=== PATIENT | female | born 1940 | race Caucasian/White ===

== ENCOUNTER 2017-10-29 16:39 | Emergency (ER) | payer OTHER, BC ==
[~2017-10-29] VITALS: Ht 162.6 cm; Wt 41.7 kg
[2017-10-29 16:39] VITALS: BP_SYST 202
[2017-10-29] MEDS ORDERED: IBUPROFEN 400 MG TABLET PO ONE (17:00)
[2017-10-29 18:18] VITALS: BP_SYST 143
== END 2017-10-29 18:18 | disposition home or self-care (01) ==
LOC: SED 16:39
DX: S20.212A Contusion of left front wall of thorax, initial encounter (principal); R03.0 Elevated blood-pressure reading, without diagnosis of hypertension; J44.9 Chronic obstructive pulmonary disease, unspecified; W17.89XA Other fall from one level to another, initial encounter; Y93.89 Activity, other specified; Y92.89 Other specified places as the place of occurrence of the external cause; Y99.8 Other external cause status
CPT/HCPCS: 71045; 71100; 99284

== ENCOUNTER 2018-02-06 09:37 | Outpatient (CLI) | payer OTHER, BC | END 2018-02-06 20:04 | disposition home or self-care (01) | LOC: SCA 09:37 | DX: I07.1 Rheumatic tricuspid insufficiency (principal); E78.5 Hyperlipidemia, unspecified; J44.9 Chronic obstructive pulmonary disease, unspecified | CPT/HCPCS: 93306 ==

== ENCOUNTER 2018-08-08 12:03 | Inpatient (IN) | payer OTHER, BC ==
[~2018-08-08] VITALS: Ht 162.6 cm; Wt 44.0 kg
[2018-08-08 12:09] VITALS: BP_SYST 200
[2018-08-08] MEDS ORDERED: NACL 0.9% 1,000 ML IV ONE (12:11)
[2018-08-08] MEDS ORDERED: MORPHINE 4 MG/ML INJ. SYRINGE IVP ONE (12:15)
[2018-08-08] MEDS ORDERED: ONDANSETRON HCL 4 MG/2 ML VIAL IVP ONE (12:15)
[2018-08-08 12:43] LABS: ANION GAP 9 (5-15); CALCIUM 9.7 mg/dL (8.4-11.0); CHLORIDE 104 mmol/L (98-107); CREATININE 0.45 mg/dL (0.55-1.30); GLUCOSE 126 mg/dL (70-99); POTASSIUM 3.8 mmol/L (3.5-5.1); SODIUM SERUM 139 mmol/L (136-145); UREA NITROGEN, BLOOD 20 mg/dL (8-21)
[2018-08-08 12:49] LABS: ALANINE AMINOTRANSFERASE 47 U/L (12-78); ALBUMIN 3.7 g/dL (3.4-4.8); ASPARTATE AMINOTRANSFERASE 32 U/L (10-37); LIPASE 112 U/L (73-393); TOTAL BILIRUBIN 0.5 mg/dL (0.0-1.0)
[2018-08-08 12:54] LABS: EOSINOPHILS % (AUTO) 0.6 % (0.0-4.0); HEMATOCRIT 42.9 % (36-48); HEMOGLOBIN 14.6 g/dL (12.0-16.0); LYMPHOCYTES % (AUTO) 15.7 % (20.5-51.5); MEAN CORPUSCULAR HEMOGLOBIN 30 pg (27-31); MEAN CORPUSCULAR HGB CONC 34 % (32-36); MEAN CORPUSCULAR VOLUME 89 fL (79.0-98.0); MONOCYTES % (AUTO) 6.7 % (1.7-9.3); NEUTROPHILS % (AUTO) 76.7 % (40.0-70.0); PLATELET COUNT (AUTO) 253 K/uL (130-430); RED BLOOD CELL COUNT(AUTO) 4.83 MIL/uL (4.2-6.2); RED CELL DISTRIBUTION WIDTH 13.8 % (9.0-15.0); WHITE BLOOD COUNT (AUTO) 7.9 K/uL (4.8-10.8)
[2018-08-08 12:55] LABS: BASOPHILS % (AUTO) 0.3 % (0.0-2.0); EOSINOPHILS # (AUTO) 0.1 K/uL (0.0-0.4); LYMPHOCYTES # (AUTO) 1.2 K/uL (1.0-5.5); MONOCYTES # (AUTO) 0.5 K/uL (0.0-1.0)
[2018-08-08] MEDS ORDERED: D5NS 1,000 ML IV SCH (13:45)
[2018-08-08 14:27] LABS: BILIRUBIN,URINE NEGATIVE (NEGATIVE); BLOOD, URINE NEGATIVE (NEGATIVE); CLARITY/URINE CLEAR (CLEAR); COLOR,URINE YELLOW (YELLOW); GLUCOSE,URINE NEGATIVE (NEGATIVE); KETONES,URINE NEGATIVE (NEGATIVE); LEUKOCYTE ESTERASE ,URINE 1+ (NEGATIVE); NITRITE, URINE NEGATIVE (NEGATIVE); PH,URINE 7.5 (5.0-8.0); PROTEIN URINE NEGATIVE (NEGATIVE); UROBILINOGEN,URINE 0.2 (0.2-1.0)
[2018-08-08 14:53] LABS: BACTERIA,URINE FEW /HPF (None Seen); MUCUS,URINE 1+ /LPF (None Seen); RBC,URINE 0-3 /HPF (0-3)
[2018-08-08 15:00] VITALS: BP_SYST 159
[2018-08-08 15:24] VITALS: BP_SYST 159
[2018-08-08 15:30] VITALS: BP_SYST 159
[2018-08-08] MEDS ORDERED: hydrALAZINE HCL 20 MG/ML VIAL IVP PRN (15:30)
[2018-08-08] MEDS ORDERED: HYDROcodone/ACETAMIN 5-325 MG TAB (NORCO/ VICODIN) PO PRN ×2 (16:15→17:15)
[2018-08-08] MEDS ORDERED: KETOROLAC TROMETHAMINE 30 MG VIAL IVP PRN (16:15)
[2018-08-08] MEDS ORDERED: ACETAMINOPHEN 325 MG TABLET PO PRN (17:15)
[2018-08-08] MEDS ORDERED: HYDROmorphone 2 MG/ML VIAL IVP PRN (17:15)
[2018-08-08] MEDS ORDERED: LORazepam 2 MG/ML VIAL IVP PRN (17:15)
[2018-08-08] MEDS ORDERED: ONDANSETRON HCL 4 MG/2 ML VIAL IVP PRN (17:15)
[2018-08-08] MEDS ORDERED: hydrALAZINE HCL 25 MG TABLET PO SCH (18:00)
[2018-08-08] MEDS: D5/0.45 NS 1,000 ML IV SCH (18:01)
[2018-08-08] MEDS ORDERED: GUAI100S14 PO (18:24)
[2018-08-08] MEDS ORDERED: THYR60TA PO (18:24)
[2018-08-08] MEDS ORDERED: PROG100C15 PO (18:24)
[2018-08-08 18:47] VITALS: BP_SYST 179
[2018-08-08 20:00] VITALS: BP_SYST 162
[2018-08-08] MEDS: hydrALAZINE HCL 25 MG TABLET PO SCH (20:38)
[2018-08-09 02:51] VITALS: BP_SYST 148
[2018-08-09] MEDS: D5/0.45 NS 1,000 ML IV SCH ×2 (04:33→17:13)
[2018-08-09 06:55] LABS: ANION GAP 8 (5-15); CALCIUM 8.2 mg/dL (8.4-11.0); CHLORIDE 107 mmol/L (98-107); GLUCOSE 127 mg/dL (70-99); POTASSIUM 3.2 mmol/L (3.5-5.1); SODIUM SERUM 139 mmol/L (136-145); UREA NITROGEN, BLOOD 6 mg/dL (8-21)
[2018-08-09 07:24] LABS: HEMOGLOBIN 12.3 g/dL (12.0-16.0); MEAN CORPUSCULAR HEMOGLOBIN 30 pg (27-31); MEAN CORPUSCULAR HGB CONC 33 % (32-36); MEAN CORPUSCULAR VOLUME 89 fL (79.0-98.0); RED BLOOD CELL COUNT(AUTO) 4.17 MIL/uL (4.2-6.2); WHITE BLOOD COUNT (AUTO) 6.6 K/uL (4.8-10.8)
[2018-08-09 07:25] LABS: BASOPHILS % (AUTO) 0.6 % (0.0-2.0); EOSINOPHILS % (AUTO) 0.9 % (0.0-4.0); LYMPHOCYTES # (AUTO) 1.1 K/uL (1.0-5.5); LYMPHOCYTES % (AUTO) 16.6 % (20.5-51.5); MONOCYTES % (AUTO) 10.4 % (1.7-9.3); NEUTROPHILS # (AUTO) 4.7 K/uL (1.8-7.7); NEUTROPHILS % (AUTO) 71.5 % (40.0-70.0); PLATELET COUNT (AUTO) 194 K/uL (130-430); RED CELL DISTRIBUTION WIDTH 13.5 % (9.0-15.0)
[2018-08-09 07:26] LABS: EOSINOPHILS # (AUTO) 0.1 K/uL (0.0-0.4); MONOCYTES # (AUTO) 0.7 K/uL (0.0-1.0)
[2018-08-09 08:35] VITALS: BP_SYST 148
[2018-08-09] MEDS: hydrALAZINE HCL 25 MG TABLET PO SCH ×2 (08:40→20:15)
[2018-08-09] MEDS ORDERED: POTASSIUM CHLORIDE 20 MEQ TAB.PRT.SR PO ONE (12:00)
[2018-08-09 12:02] VITALS: BP_SYST 137
[2018-08-09 16:22] VITALS: BP_SYST 154
[2018-08-09 20:00] VITALS: BP_SYST 156
[2018-08-10 03:16] VITALS: BP_SYST 158
[2018-08-10] MEDS: D5/0.45 NS 1,000 ML IV SCH ×2 (06:51→22:01)
[2018-08-10 07:43] LABS: ALANINE AMINOTRANSFERASE 41 U/L (12-78); ALBUMIN 2.6 g/dL (3.4-4.8); ANION GAP 4 (5-15); ASPARTATE AMINOTRANSFERASE 34 U/L (10-37); CALCIUM 8.1 mg/dL (8.4-11.0); CHLORIDE 106 mmol/L (98-107); CREATININE 0.25 mg/dL (0.55-1.30); GLUCOSE 117 mg/dL (70-99); POTASSIUM 3.5 mmol/L (3.5-5.1); SODIUM SERUM 136 mmol/L (136-145); UREA NITROGEN, BLOOD 5 mg/dL (8-21)
[2018-08-10 08:40] LABS: HEMOGLOBIN 12.8 g/dL (12.0-16.0); MEAN CORPUSCULAR HEMOGLOBIN 31 pg (27-31); MEAN CORPUSCULAR HGB CONC 35 % (32-36); MEAN CORPUSCULAR VOLUME 89 fL (79.0-98.0); PLATELET COUNT (AUTO) 184 K/uL (130-430); RED BLOOD CELL COUNT(AUTO) 4.17 MIL/uL (4.2-6.2); RED CELL DISTRIBUTION WIDTH 13.8 % (9.0-15.0); WHITE BLOOD COUNT (AUTO) 6.3 K/uL (4.8-10.8)
[2018-08-10 08:41] LABS: BASOPHILS % (AUTO) 0.5 % (0.0-2.0); EOSINOPHILS # (AUTO) 0.1 K/uL (0.0-0.4); EOSINOPHILS % (AUTO) 1.7 % (0.0-4.0); LYMPHOCYTES # (AUTO) 1.2 K/uL (1.0-5.5); LYMPHOCYTES % (AUTO) 19.7 % (20.5-51.5); MONOCYTES # (AUTO) 0.7 K/uL (0.0-1.0); MONOCYTES % (AUTO) 11.9 % (1.7-9.3); NEUTROPHILS # (AUTO) 4.2 K/uL (1.8-7.7); NEUTROPHILS % (AUTO) 66.2 % (40.0-70.0)
[2018-08-10 08:45] VITALS: BP_SYST 147
[2018-08-10] MEDS: hydrALAZINE HCL 25 MG TABLET PO SCH ×2 (08:48→21:00)
[2018-08-10 12:12] VITALS: BP_SYST 149
[2018-08-10 13:32] LABS: INR 0.9 (0.8-1.2); PROTHROMBIN TIME 9.7 SECS (9.5-12.5)
[2018-08-10 17:30] VITALS: BP_SYST 159
[2018-08-10] MEDS ORDERED: POLYMYXIN 500,000/BACIT.10,000 UNITS in NS IRR 1 L IR ONE (18:17)
[2018-08-10 20:08] VITALS: BP_SYST 159
[2018-08-10] MEDS ORDERED: ONDANSETRON HCL 4 MG/2 ML VIAL IVP PRN (20:30)
[2018-08-10] MEDS ORDERED: MORPHINE SULFATE 10MG/10ML PF AMP SP SCH (20:30)
[2018-08-10] MEDS ORDERED: DIPHENHYDRAMINE INJ 50 MG/ML VIAL IVP PRN (20:30)
[2018-08-10] MEDS ORDERED: KETOROLAC TROMETHAMINE 60 MG/2 ML VIAL IM PRN (20:30)
[2018-08-10] MEDS ORDERED: fentaNYL CITRATE/PF 100 MCG/2 ML AMP IVP PRN ×2 (20:30)
[2018-08-10] MEDS ORDERED: NALOXONE HCL 0.4 MG/ML AMP (NARCAN) IVP PRN ×2 (20:30)
[2018-08-10] MEDS ORDERED: NALBUPHINE HCL 10 MG/ML AMP IVP PRN (20:30)
[2018-08-10 21:33] VITALS: BP_SYST 148
[2018-08-10] MEDS ORDERED: CEFAZOLIN 1 GM IVPB PREMIX 100 ML IV ONE (22:15)
[2018-08-10] MEDS: CEFAZOLIN 1 GM IVPB PREMIX 50 ML IV SCH (23:01)
[2018-08-11 00:30] VITALS: BP_SYST 144
[2018-08-11] MEDS: CEFAZOLIN 1 GM IVPB PREMIX 50 ML IV SCH (06:12)
[2018-08-11 06:22] LABS: ANION GAP 6 (5-15); CHLORIDE 107 mmol/L (98-107); POTASSIUM 3.4 mmol/L (3.5-5.1); SODIUM SERUM 139 mmol/L (136-145)
[2018-08-11 06:23] LABS: CALCIUM 8.1 mg/dL (8.4-11.0); CREATININE 0.33 mg/dL (0.55-1.30); GLUCOSE 135 mg/dL (70-99); UREA NITROGEN, BLOOD 9 mg/dL (8-21)
[2018-08-11 07:16] LABS: HEMATOCRIT 32.2 % (36-48); HEMOGLOBIN 11.1 g/dL (12.0-16.0); MEAN CORPUSCULAR HEMOGLOBIN 31 pg (27-31); MEAN CORPUSCULAR HGB CONC 34 % (32-36); MEAN CORPUSCULAR VOLUME 89 fL (79.0-98.0); RED BLOOD CELL COUNT(AUTO) 3.63 MIL/uL (4.2-6.2); WHITE BLOOD COUNT (AUTO) 7.9 K/uL (4.8-10.8)
[2018-08-11 07:17] LABS: BASOPHILS % (AUTO) 0.1 % (0.0-2.0); EOSINOPHILS % (AUTO) 0.6 % (0.0-4.0); LYMPHOCYTES # (AUTO) 0.7 K/uL (1.0-5.5); LYMPHOCYTES % (AUTO) 9.3 % (20.5-51.5); MONOCYTES # (AUTO) 0.8 K/uL (0.0-1.0); MONOCYTES % (AUTO) 10.2 % (1.7-9.3); NEUTROPHILS # (AUTO) 6.3 K/uL (1.8-7.7); NEUTROPHILS % (AUTO) 79.8 % (40.0-70.0); PLATELET COUNT (AUTO) 171 K/uL (130-430); RED CELL DISTRIBUTION WIDTH 13.4 % (9.0-15.0)
[2018-08-11] MEDS ORDERED: POTASSIUM CHLORIDE 20 MEQ TAB.PRT.SR PO ONE ×2 (08:30→13:15)
[2018-08-11] MEDS: hydrALAZINE HCL 25 MG TABLET PO SCH ×2 (09:00→21:00)
[2018-08-11 09:24] VITALS: BP_SYST 121
[2018-08-11 11:16] VITALS: BP_SYST 119
[2018-08-11] MEDS: D5/0.45 NS 1,000 ML IV SCH (13:03)
[2018-08-11] MEDS ORDERED: IOHEXOL 350 mgI/mL, 150 ML INFUS..BTL IV ONE (14:08)
[2018-08-11 16:17] VITALS: BP_SYST 107
[2018-08-11] MEDS ORDERED: ENOXAPARIN SODIUM 40 MG/0.4 ML SYRINGE SUBCUT SCH (19:00)
[2018-08-11 20:00] VITALS: BP_SYST 126
[2018-08-11] MEDS: HYDROcodone/ACETAMIN 10-325 MG TAB PO PRN (21:46)
[2018-08-12 00:20] VITALS: BP_SYST 142
[2018-08-12] MEDS: D5/0.45 NS 1,000 ML IV SCH ×2 (03:40→15:05)
[2018-08-12 06:57] LABS: ANION GAP 6 (5-15); CALCIUM 8.3 mg/dL (8.4-11.0); CHLORIDE 102 mmol/L (98-107); CREATININE 0.28 mg/dL (0.55-1.30); GLUCOSE 135 mg/dL (70-99); POTASSIUM 3.8 mmol/L (3.5-5.1); SODIUM SERUM 134 mmol/L (136-145); UREA NITROGEN, BLOOD 14 mg/dL (8-21)
[2018-08-12 07:50] LABS: BASOPHILS % (AUTO) 0.4 % (0.0-2.0); EOSINOPHILS # (AUTO) 0.1 K/uL (0.0-0.4); EOSINOPHILS % (AUTO) 1.5 % (0.0-4.0); HEMATOCRIT 28.5 % (36-48); HEMOGLOBIN 9.8 g/dL (12.0-16.0); LYMPHOCYTES # (AUTO) 0.8 K/uL (1.0-5.5); LYMPHOCYTES % (AUTO) 9.7 % (20.5-51.5); MEAN CORPUSCULAR HEMOGLOBIN 30 pg (27-31); MEAN CORPUSCULAR HGB CONC 34 % (32-36); MEAN CORPUSCULAR VOLUME 89 fL (79.0-98.0); MONOCYTES % (AUTO) 13.3 % (1.7-9.3); NEUTROPHILS # (AUTO) 5.9 K/uL (1.8-7.7); NEUTROPHILS % (AUTO) 75.1 % (40.0-70.0); PLATELET COUNT (AUTO) 170 K/uL (130-430); RED BLOOD CELL COUNT(AUTO) 3.22 MIL/uL (4.2-6.2); RED CELL DISTRIBUTION WIDTH 13.8 % (9.0-15.0); WHITE BLOOD COUNT (AUTO) 7.9 K/uL (4.8-10.8)
[2018-08-12] MEDS: HYDROcodone/ACETAMIN 10-325 MG TAB PO PRN ×2 (08:17→16:07)
[2018-08-12 08:26] VITALS: BP_SYST 127
[2018-08-12] MEDS: hydrALAZINE HCL 25 MG TABLET PO SCH (08:26)
[2018-08-12] MEDS ORDERED: HYDR-4038 PO (12:31)
[2018-08-12 12:33] VITALS: BP_SYST 126
[2018-08-12 15:42] VITALS: BP_SYST 126
[2018-08-12 16:55] VITALS: BP_SYST 135
[2018-08-12] MEDS ORDERED: PROPOFOL 200MG/ 20ML VIAL (DIPRIVAN) IV ONE (18:05)
[2018-08-12] MEDS ORDERED: EPINEPHrine 1 MG/ML AMP IM ONE (18:05)
[2018-08-12] MEDS ORDERED: MORPHINE SULFATE 10MG/10ML PF AMP EP ONE (18:05)
[2018-08-12] MEDS ORDERED: MIDAZOLAM HCL 5 MG/5 ML VIAL IVP ONE (18:05)
[2018-08-12] MEDS ORDERED: LR 500 ML IV.SOLN IV ONE (18:05)
== END 2018-08-12 16:45 | DRG 470 ==
LOC: SED 12:03 → SMU 13:45
PROVIDERS: ADMIT Preventive Medicine Preventive Medicine/Occupational Environmental Medicine; ATTEND Preventive Medicine Preventive Medicine/Occupational Environmental Medicine
PROC: 0SRR01A Replacement of Right Hip Joint, Femoral Surface with Metal Synthetic Substitute, Uncemented, Open Approach (ICD-10-PCS; principal; 2018-08-10 18:00)
DX: S72.141A Displaced intertrochanteric fracture of right femur, initial encounter for closed fracture (principal); E03.9 Hypothyroidism, unspecified; I28.9 Disease of pulmonary vessels, unspecified; I11.9 Hypertensive heart disease without heart failure; I25.10 Atherosclerotic heart disease of native coronary artery without angina pectoris; I65.23 Occlusion and stenosis of bilateral carotid arteries; I73.9 Peripheral vascular disease, unspecified; J44.9 Chronic obstructive pulmonary disease, unspecified; W01.0XXA Fall on same level from slipping, tripping and stumbling without subsequent striking against object, initial encounter; Y92.009 Unspecified place in unspecified non-institutional (private) residence as the place of occurrence of the external cause; E87.6 Hypokalemia
CPT/HCPCS: 36415; 70498; 71045; 72170-TC; 73502; 80048; 80053; 81000-TC; 82962; 83690-TC; 83735-TC; 85025; 85610-TC; 87081; 87086; 88305; 88311; 93005; 93306; 93880; 94010; 94760; 96360; 97110-GP; 97116-GP; 97530-GP; 99285; C1776; J0171; J0690; J1885; J2250; J2274; J2704; J7042; J7120; Q9967

== ENCOUNTER 2018-08-14 08:04 | Inpatient (IN) | payer OTHER, BC ==
[~2018-08-14] VITALS: Ht 162.6 cm; Wt 45.8 kg
[~2018-08-14 08:04] MED LIST: HYDR-4038 PO; PROG100C15 PO; THYR60TA PO
[2018-08-14] MEDS ORDERED: MIDAZOLAM HCL 5 MG/5 ML VIAL IVP ONE (12:30)
[2018-08-14] MEDS ORDERED: PROPOFOL 200MG/ 20ML VIAL (DIPRIVAN) IV ONE ×2 (12:30→22:00)
[2018-08-14] MEDS ORDERED: BUPIVACAINE LIPOSOME/PF 266 MG/20 ML VIAL INFIL ONE (12:30)
[2018-08-14] MEDS ORDERED: LR 1,000 ML IV.SOLN IV ONE ×2 (12:30→22:00)
[2018-08-14] MEDS ORDERED: SEVOFLURANE 15 MIN GAS INH ONE ×2 (12:30→22:00)
[2018-08-14] MEDS ORDERED: LORazepam 2 MG/ML VIAL IVP PRN (13:00)
[2018-08-14] MEDS ORDERED: ACETAMINOPHEN 325 MG TABLET PO PRN (13:00)
[2018-08-14] MEDS ORDERED: ONDANSETRON HCL 4 MG/2 ML VIAL IVP PRN (13:00)
[2018-08-14 13:04] VITALS: BP_SYST 197
--- NOTE | 2018-08-14 13:22 | NUR ---
ADMISSION NOTE Patient is a direct admit. Patient is awake, alert, oriented X [3]. Patient oriented to hospital room, call light, toileting, pain management and safety-teach back done. Patient informed that will be Ze nurse and that their room number is . Personal belongings checked and Belongings List documented. Call light within reach.
[2018-08-14] MEDS: NORMAL SALINE 5 ML DISP.SYRIN IVF SCH ×2 (14:00→21:35)
[2018-08-14] MEDS: HYDROcodone/ACETAMIN 10-325 MG TAB PO PRN ×2 (14:16→21:35)
--- NOTE | 2018-08-14 14:38 | NUR ---
DR. HATCH IS CALLED FOR THE CONSULT. MESSAGE IS RELAYED PER DIRECTOR EMBALMER
[2018-08-14] MEDS: HYDROcodone/ACETAMIN 5-325 MG TAB (NORCO/ VICODIN) PO PRN (16:05)
[2018-08-14 16:50] VITALS: BP_SYST 158
--- NOTE | 2018-08-14 17:07 | NUR ---
DR. HATCH IS CONSULTED FOR THE SURGERY, BUT HE IS CURRENTLY ON SUSPENSION; DR. HATCH IS INFORMED ABOUT HIS SUSPENSION, AND HE STATES HE WILL SEE THE PATIENT AND PLANNING TO DO SURGERY TOMORROW AFTER HE CLEARS HIS SUSPENSION. DR. MEJIA IS ALSO INFORMED ABOUT THE CURRENT SITUATION, AND ORDERS FOR PRE OP SURGICAL PREPARATIONS ARE GIVEN BY DR. MEJIA.
[2018-08-14] MEDS ORDERED: PROGESTERONE MICRONIZED 100 MG PO SCH (18:00)
[2018-08-14 18:18] LABS: BASOPHILS % (AUTO) 0.4 % (0.0-2.0); EOSINOPHILS % (AUTO) 0.2 % (0.0-4.0); HEMATOCRIT 33.7 % (36-48); HEMOGLOBIN 11.4 g/dL (12.0-16.0); LYMPHOCYTES % (AUTO) 11.8 % (20.5-51.5); MEAN CORPUSCULAR HEMOGLOBIN 30 pg (27-31); MEAN CORPUSCULAR HGB CONC 34 % (32-36); MEAN CORPUSCULAR VOLUME 89 fL (79.0-98.0); MONOCYTES # (AUTO) 0.9 K/uL (0.0-1.0); MONOCYTES % (AUTO) 9.6 % (1.7-9.3); PLATELET COUNT (AUTO) 324 K/uL (130-430); RED BLOOD CELL COUNT(AUTO) 3.78 MIL/uL (4.2-6.2); RED CELL DISTRIBUTION WIDTH 13.4 % (9.0-15.0); WHITE BLOOD COUNT (AUTO) 8.9 K/uL (4.8-10.8)
[2018-08-14 18:22] LABS: INR 0.9 (0.8-1.2); PROTHROMBIN TIME 9.3 SECS (9.5-12.5)
[2018-08-14 18:25] LABS: ANION GAP 7 (5-15); CALCIUM 8.9 mg/dL (8.4-11.0); CHLORIDE 100 mmol/L (98-107); CREATININE 0.36 mg/dL (0.55-1.30); GLUCOSE 94 mg/dL (70-99); POTASSIUM 3.3 mmol/L (3.5-5.1); SODIUM SERUM 135 mmol/L (136-145); UREA NITROGEN, BLOOD 12 mg/dL (8-21)
--- NOTE | 2018-08-14 18:50 | NUR ---
WINTER CATH: # 16 FR Winter catheter with cc bulb inserted with use of sterile technique. Bulb inflated with cc sterile water. Immediate return of urine noted. Bedside drainage bag placed below level of bladder. Urine sample collected and sent to lab . Pt tolerated procedure WITHOUT DISTRESS
--- NOTE | 2018-08-14 19:15 | NUR ---
OPENING NOTES Bedside report received from dayshift nurse. Patient received lying in bed, AOx4, no s/s of acute distress noted. Breathing is even and unlabored. Family members present at bedside. Trapeze present. Landrum attached, secured, and draining by gravity. Call light with patient, instructed to call for any assistance, patient verbalized understanding. Bed alarm is on. Bed is locked and at lowest position. Will continue to monitor.
[2018-08-14 19:16] LABS: BILIRUBIN,URINE NEGATIVE (NEGATIVE); BLOOD, URINE 2+ (NEGATIVE); CLARITY/URINE HAZY (CLEAR); COLOR,URINE YELLOW (YELLOW); GLUCOSE,URINE NEGATIVE (NEGATIVE); KETONES,URINE 2+ (NEGATIVE); NITRITE, URINE POSITIVE (NEGATIVE); PH,URINE 5.5 (5.0-8.0); PROTEIN URINE 2+ (NEGATIVE)
[2018-08-14 19:26] LABS: LEUKOCYTE ESTERASE ,URINE 3+ (NEGATIVE)
[2018-08-14 19:27] LABS: BACTERIA,URINE MANY /HPF (None Seen); RBC,URINE 0-3 /HPF (0-3); WBC,URINE 80-100 /HPF (0-3)
[2018-08-14 19:28] LABS: MUCUS,URINE None Seen /LPF (None Seen)
[2018-08-14 20:00] VITALS: BP_SYST 168
[2018-08-14] MEDS: MORPHINE 4 MG/ML INJ. SYRINGE IVP PRN (20:35)
[2018-08-14] MEDS: hydrALAZINE HCL 25 MG TABLET PO SCH (21:00)
--- NOTE | 2018-08-14 21:00 | NUR ---
REFUSED APRESOLINE Patient refused to take medication stating that she does not need it. Patient informed that her BP was 168/78. Patient stated that it is high because she is in pain. All needs met at this time. Call light with patient. Bed alarm on. Will continue to monitor.
--- NOTE | 2018-08-14 23:00 | NUR ---
ROUNDS Patient in bed sleeping at this time. No signs of discomfort noted. Chest rise and fall even bilaterally. No active bleeding noted. Call light with patient. All needs met at this time. Bed alarm on. Will continue to monitor.
--- NOTE | 2018-08-15 01:00 | NUR ---
ROUNDS Patient in bed sleeping at this time. No signs of discomfort noted. Chest rise and fall even bilaterally. Landrum draining by gravity. Call light with patient. Bed alarm on. Will continue to monitor.
--- NOTE | 2018-08-15 03:00 | NUR ---
ROUNDS Patient sleeping. No s/s of acute distress noted. Breathing even and unlabored. Call light with patient. Bed alarm on. Patient's daughter present at bedside, sleeping. Will continue to monitor.
[2018-08-15 04:14] VITALS: BP_SYST 148
--- NOTE | 2018-08-15 04:51 | NUR ---
CONSULT CONSULT CALLED FOR DR. HOLDEN BELLAMY I SPOKE WITH EMIR LÓPEZ REASON FOR CONSULT: HIP DISLOCATION REQUESTING CONSULT: DR. JACKIE SOU[employer] GENERAL LITHOGRAPHIC WORKER PHONE NUMBER: [phone]
--- NOTE | 2018-08-15 05:00 | NUR ---
ROUNDS Patient sleeping at this time. No signs of discomfort noted. Chest rise and fall even bilaterally. Call light with patient. Bed alarm on. Will continue to monitor.
[2018-08-15] MEDS: MORPHINE 4 MG/ML INJ. SYRINGE IVP PRN ×2 (05:40→09:44)
[2018-08-15] MEDS: NORMAL SALINE 5 ML DISP.SYRIN IVF SCH ×3 (05:40→21:29)
--- NOTE | 2018-08-15 06:20 | NUR ---
CLOSING NOTES Patient in bed, eyes closed, appears to be asleep. No s/s of acute distress noted. Breathing even and unlabored. IV site patent, no signs of infiltration or infection noted. Trapeze present at bedside. Landrum attached, secured, and draining by gravity. All needs met throughout shift. Fall and safety precautions maintained throughout shift. Will continue to monitor until patient care is endorsed to oncoming dayshift nurse.
[2018-08-15 06:48] LABS: ANION GAP 4 (5-15); CALCIUM 8.4 mg/dL (8.4-11.0); CHLORIDE 102 mmol/L (98-107); CREATININE 0.25 mg/dL (0.55-1.30); GLUCOSE 88 mg/dL (70-99); POTASSIUM 3.1 mmol/L (3.5-5.1); SODIUM SERUM 134 mmol/L (136-145); UREA NITROGEN, BLOOD 11 mg/dL (8-21)
--- NOTE | 2018-08-15 06:58 | NUR ---
Nutrition Update Rhett Scale 16 noted. Pt admitted for Superior Dislocation of R Prosthesis Diet: NPO BMI: 17.4 kg/m2 RD to follow per nutrition care standards.
[2018-08-15 07:18] LABS: HEMOGLOBIN 9.7 g/dL (12.0-16.0); RED BLOOD CELL COUNT(AUTO) 3.19 MIL/uL (4.2-6.2); WHITE BLOOD COUNT (AUTO) 7.2 K/uL (4.8-10.8)
[2018-08-15 07:22] LABS: BASOPHILS % (AUTO) 0.5 % (0.0-2.0); EOSINOPHILS % (AUTO) 1.7 % (0.0-4.0); HEMATOCRIT 28.2 % (36-48); LYMPHOCYTES % (AUTO) 16.7 % (20.5-51.5); MEAN CORPUSCULAR HEMOGLOBIN 30 pg (27-31); MEAN CORPUSCULAR HGB CONC 34 % (32-36); MEAN CORPUSCULAR VOLUME 88 fL (79.0-98.0); MONOCYTES % (AUTO) 11.8 % (1.7-9.3); NEUTROPHILS % (AUTO) 69.3 % (40.0-70.0); PLATELET COUNT (AUTO) 285 K/uL (130-430); RED CELL DISTRIBUTION WIDTH 13.1 % (9.0-15.0)
[2018-08-15 07:23] LABS: EOSINOPHILS # (AUTO) 0.1 K/uL (0.0-0.4); LYMPHOCYTES # (AUTO) 1.2 K/uL (1.0-5.5); MONOCYTES # (AUTO) 0.8 K/uL (0.0-1.0)
[2018-08-15 08:00] VITALS: BP_SYST 154
--- NOTE | 2018-08-15 08:00 | NUR ---
Note Pt resting in bed - NPO for possible surgery this morning. No SOB/resp distress or severe right hip pain noted at this time. IV in left forearm intact and patent at this time. Landrum catheter intact and draining well. Abductor pillow between legs. No needs noted at this time. Call light within reach.
[2018-08-15] MEDS ORDERED: POTASSIUM CHLORIDE 40 MEQ, LIDOCAINE JECT 2% PF 100 MG 50 MG in NS 250 ML IV ONE (08:15)
--- NOTE | 2018-08-15 08:56 | NUR ---
CONSULT CARDIOLOGY HYPERTENSION DR Willi MEJIA [phone] S/W FELIBERTO EXCHANGE
[2018-08-15] MEDS: hydrALAZINE HCL 25 MG TABLET PO SCH ×2 (09:05→21:00)
[2018-08-15] MEDS: THYROID 30 MG TABLET PO SCH (09:08)
--- NOTE | 2018-08-15 10:00 | NUR ---
Note Pt was given Morphine 2mg IVP at 0945am. IV started leaking, IV was dc'd and new IV inserted by Betsy montgomery RN. Pt's daughter at bedside all shift. Vp [employer] Marge notified RN that pt will have surgery by Dr Dela Cruz between 11am and noon. Pt and her daughter were notified. PROPERTY LOSS INSURANCE CLAIM ADJUSTER to give pt CHG bath. Chart made ready for surgery. Call light within reach.
[2018-08-15 11:38] VITALS: BP_SYST 149
--- NOTE | 2018-08-15 12:00 | NUR ---
Note Dr Roberto called and update on pt's status given. HUMAN RESOURCE ADVISER's in room speaking to pt and her daughter. Questions/concerns were answered at this time. Pt resting in bed. Call light within reach. Pt's 40meq K-rider running through left upper arm IV site since 1036am. No needs noted. Call light within reach.
--- NOTE | 2018-08-15 12:32 | NUR ---
Note Pt off the floor via bed to OR. Dr Roberto with pt and 2 [employer]'s as well. Pt's daughter accompanied pt off the room to OR as well to speak to Dr Dela Cruz.
[2018-08-15] MEDS ORDERED: fentaNYL CITRATE/PF 100 MCG/2 ML AMP IVP PRN ×2 (13:15)
[2018-08-15] MEDS ORDERED: MIDAZOLAM HCL 2 MG/2 ML VIAL (VERSED) IVP PRN (13:15)
[2018-08-15] MEDS ORDERED: fentaNYL CITRATE/PF 100 MCG/2 ML AMP ONE (13:54)
--- NOTE | 2018-08-15 15:05 | NUR ---
Note Pt returned to floor vai bed from PACU at 1410. Pt drowsy and sleepy, answers questions appropriately. Right hip dressing CDI at this time. Neuro checks on right leg WNL at this time, IVF's infusing well through left upper arm IV site. Landrum catheter intact and draining well. No needs noted at this time. Call light within reach. Pt's daughter has left bedside and has gone home at 1430. Pt resting well, no needs noted at this time.
--- NOTE | 2018-08-15 16:35 | NUR ---
Case mgt: Rec'd orders for HH, PT, hospital bed,FWW, BSC--per nurse Karen, family is discussing dc plan and dtr prefers pt to return to [facility] but they are discussing it. Pt lives alone--will f/u for dc planning-- director Lucy made aware of late dc plan orders and aware f/u will be Friday, August 17. KT CHOE
[2018-08-15 17:00] VITALS: BP_SYST 167
--- NOTE | 2018-08-15 17:05 | NUR ---
Note Spoke to pt's son Omid about pt's discharge from the hospital. Omid stated pt and her son and daughter (all 3) will have a discussion today or tomorrow and let CM know their decision on friday08/17/18. CM Desire notified of this decision. Pr awake and interacting with her son at this time. No needs noted. Call light within reach.
--- NOTE | 2018-08-15 18:30 | NUR ---
Note Pt sitting up in bed eating her regular diet of toast and soup. Pt's daughter and son in law at bedside. Pt denies any pain/discomfort at this time. Neuro checks in right leg WNL at this time. Pt was checked on q1' and PRN all shift for needs and care. IV in left upper arm intact and patent infusing IVF's well. Right hip dressing CDI at this time. Abductor pillow between legs all shift. No needs noted. No SOB/resp distress noted. Call light within reach.
--- NOTE | 2018-08-15 19:05 | NUR ---
OPENING NOTE Bedside report received from dayshift nurse. Patient received lying in bed, AOX4, no s/s of acute distress, patient denies any pain at this time. HOB raised, breathing even and unlabored. IVF infusing well, IV site patent, no signs of infiltration or infection noted. Abductor pillow placed in between patient's legs. Heels elevated. Neurovascular check within normal limits. Trapeze present at bedside. Landrum attached, secured, and draining by gravity. Call light with patient. Bed alarm on. Bed locked and at lowest position. Will continue to monitor.
[2018-08-15 20:00] VITALS: BP_SYST 123
--- NOTE | 2018-08-15 21:00 | NUR ---
EDUCATION: IS Patient educated on proper use of IS, 10 repetitions per hour when awake. Patient was able to demonstrate proper use, reaching 1500 at this time. Patient verbalized understanding. All needs met at this time. Call light with patient. Bed alarm on. Will continue to monitor.
--- NOTE | 2018-08-15 23:00 | NUR ---
SCDs ATTACHED SCDs attached this time. Patient shows no signs of discomfort, denies pain. Chest rise and fall even bilaterally. Call light with patient. Bed alarm on. Landrum attached, secured, and draining by gravity. All needs met. Will continue to monitor.
[2018-08-15 23:44] VITALS: BP_SYST 145
--- NOTE | 2018-08-16 01:00 | NUR ---
ROUNDS Patient sleeping at this time. No s/s of acute distress. Chest rise and fall even bilaterally. Call light with patient. Bed alarm on. Will continue to monitor.
--- NOTE | 2018-08-16 03:00 | NUR ---
ROUNDS Patient in bed sleeping at this time. No s/s of acute distress noted. Breathing even and unlabored. Call light with patient. Bed alarm on. Will continue to monitor.
[2018-08-16] MEDS: MORPHINE 4 MG/ML INJ. SYRINGE IVP PRN (03:50)
--- NOTE | 2018-08-16 05:00 | NUR ---
ROUNDS Patient in bed sleeping at this time. No signs of discomfort noted. Chest rise and fall even bilaterally. Call light with patient. Bed alarm on. Will continue to monitor.
[2018-08-16] MEDS: NORMAL SALINE 5 ML DISP.SYRIN IVF SCH ×3 (06:07→21:21)
[2018-08-16] MEDS: THYROID 30 MG TABLET PO SCH (06:07)
--- NOTE | 2018-08-16 06:27 | NUR ---
CLOSING NOTE Patient in bed resting, eyes closed, appears to be asleep. No s/s of acute distress noted. Breathing even and unlabored. HOB raised. IV site patent, no signs of infiltration or infection noted. Abductor device placed between legs, trapeze present at bedside. Landrum attached, secured, and draining by gravity. SCDs attached and operating. All needs met throughout shift. Fall and safety precautions maintained throughout shift. Will continue to monitor until patient care is endorsed to oncoming dayshift nurse.
[2018-08-16 07:22] LABS: ANION GAP 3 (5-15); CALCIUM 8.1 mg/dL (8.4-11.0); CHLORIDE 103 mmol/L (98-107); GLUCOSE 98 mg/dL (70-99); POTASSIUM 3.8 mmol/L (3.5-5.1); SODIUM SERUM 135 mmol/L (136-145); UREA NITROGEN, BLOOD 9 mg/dL (8-21)
[2018-08-16 07:24] LABS: BASOPHILS % (AUTO) 0.5 % (0.0-2.0); EOSINOPHILS # (AUTO) 0.2 K/uL (0.0-0.4); EOSINOPHILS % (AUTO) 2.7 % (0.0-4.0); HEMATOCRIT 26.9 % (36-48); HEMOGLOBIN 9.3 g/dL (12.0-16.0); LYMPHOCYTES # (AUTO) 1.4 K/uL (1.0-5.5); LYMPHOCYTES % (AUTO) 19.4 % (20.5-51.5); MEAN CORPUSCULAR HEMOGLOBIN 30 pg (27-31); MEAN CORPUSCULAR HGB CONC 35 % (32-36); MEAN CORPUSCULAR VOLUME 88 fL (79.0-98.0); MONOCYTES # (AUTO) 0.9 K/uL (0.0-1.0); MONOCYTES % (AUTO) 12.9 % (1.7-9.3); NEUTROPHILS # (AUTO) 4.5 K/uL (1.8-7.7); NEUTROPHILS % (AUTO) 64.5 % (40.0-70.0); PLATELET COUNT (AUTO) 303 K/uL (130-430); RED BLOOD CELL COUNT(AUTO) 3.08 MIL/uL (4.2-6.2)
[2018-08-16 07:26] LABS: CREATININE < 0.20 mg/dL (0.55-1.30)
--- NOTE | 2018-08-16 07:50 | NUR ---
INITIAL NOTE RECEIVED PT IN BED, NO S/S OF DISTRESS OR SOB NOTED, PT HAS NO C/O PAIN AT THIS TIME, PT IN STABLE CONDITION. PT AAOX4, VERBAL. IV CATHETER PATENT, NO SIGNS OF INFECTION OR INFILTRATION NOTED, SALINE LOCK. BED AT LOWEST POSITION, CALL LIGHT WITHIN REACH, WILL CONTINUE TO MONITOR PT FOR ANY CHANGES, FALL AND SAFETY PRECAUTIONS IN PLACE. RIGHT HIP INCISION CLEAN AND DRY WITH JERMAINE, NOTED A DRESSING ON END OF INCISION CLEAN AND DRY. F/C DRAINING VIA GRAVITY, EDUCATED PT ON INCENTIVE SPIROMETER, PT TO PERFORM EXERCISE AT LEAST TIMES 10 AN HOURS, PT VERBALIZED UNDERSTANDING, PT AT 1500ML. PT HAS AN ABDUCTOR PILLOW IN PLACE. PT ABLE TO MOVE TOES ON RIGHT FOOT, SENSATION PRESENT, CAPILLARY REFILL LESS THAN 3 SECONDS, PULSE PALPABLE.
[2018-08-16 08:10] VITALS: BP_SYST 144
[2018-08-16] MEDS: hydrALAZINE HCL 25 MG TABLET PO SCH ×2 (09:00→21:00)
--- NOTE | 2018-08-16 10:16 | NUR ---
ROUNDS PT IN BED, NO S/S OF DISTRESS OR SOB NOTED, PT HAS NO C/O PAIN AT THIS TIME, PT IN STABLE CONDITION. PT WATCHING TV, WILL CONTINUE TO MONITOR PT FOR ANY CHANGES.
[2018-08-16] MEDS: HYDROcodone/ACETAMIN 10-325 MG TAB PO PRN ×2 (10:52→22:02)
[2018-08-16 11:26] VITALS: BP_SYST 154
--- NOTE | 2018-08-16 12:50 | NUR ---
ROUNDS PT IN BED, NO S/S OF DISTRESS OR SOB NOTED, PT HAS NO C/O PAIN AT THIS TIME, PT IN STABLE CONDITION, PT WATCHING TV, WILL CONTINUE TO MONITOR PT FOR ANY CHANGES.
--- NOTE | 2018-08-16 12:56 | NUR ---
MD ROUNDS DR JACKIE SOSA, AWARE OF PATIENT'S CONDITION, NEW ORDERS GIVEN, PER MD TO START LOVENOX 40 MG SUBCUTANEOUS DAILY FOR DVT PROPHYLAXIS.
[2018-08-16 15:13] VITALS: BP_SYST 143
--- NOTE | 2018-08-16 18:30 | NUR ---
CLOSING NOTE PT IN BED, NO S/S OF DISTRESS OR SOB NOTED, PT HAS NO C/O PAIN AT THIS TIME, PT IN STABLE CONDITION. PT AAOX4, VERBAL. IV CATHETER PATENT, NO SIGNS OF INFECTION OR INFILTRATION NOTED, SALINE LOCK. BED AT LOWEST POSITION, CALL LIGHT WITHIN REACH, WILL ENDORSE CARE OF PT TO INCOMING NURSE, FALL AND SAFETY PRECAUTIONS IN PLACE. RIGHT HIP INCISION CLEAN AND DRY, F/C DRAINING VIA GRAVITY, EDUCATED PT ON INCENTIVE SPIROMETER, PT AT 1500ML. PT HAS AN ABDUCTOR PILLOW IN PLACE. PT ABLE TO MOVE TOES ON RIGHT FOOT, SENSATION PRESENT, CAPILLARY REFILL LESS THAN 3 SECONDS, PULSE PALPABLE.
--- NOTE | 2018-08-16 19:10 | NUR ---
OPENING NOTES Late entry due to patient care. Bedside report received from dayshift nurse. Patient received lying in bed, watching TV, no s/s of acute distress noted. Breathing even and unlabored. HOB raised. Abductor pillow placed. Heels elevated. SCDs attached and operating. IV site patent, no signs of infiltration or infection noted. Landrum attached, secured, and draining by gravity. Call light with patient. Bed alarm on. Will continue to monitor.
[2018-08-16 20:00] VITALS: BP_SYST 127
--- NOTE | 2018-08-16 21:00 | NUR ---
ROUNDS Patient in bed watching TV. No signs of discomfort noted. Patient denies any pain. Chest rise and fall even bilaterally. Call light with patient. Bed alarm on. Will continue to monitor.
[2018-08-16] MEDS: ENOXAPARIN SODIUM 40 MG/0.4 ML SYRINGE SUBCUT SCH (21:20)
--- NOTE | 2018-08-16 23:00 | NUR ---
ROUNDS Patient asleep at this time. No s/s of acute distress. Breathing even and unlabored. Call light with patient. Bed alarm on. Will continue to monitor.
--- NOTE | 2018-08-17 01:00 | NUR ---
ROUNDS Patient in bed sleeping at this time. No signs of discomfort noted. Chest rise and fall even bilaterally. SCDs attached and operating. Call light with patient. Bed alarm on. Will continue to monitor.
--- NOTE | 2018-08-17 03:00 | NUR ---
ROUNDS Patient sleeping at this time. No s/s of acute distress noted. Breathing even and unlabored. Call light with patient. Bed alarm on. Will continue to monitor.
--- NOTE | 2018-08-17 05:32 | NUR ---
TRANSFER OF CARE Report given to DAIJA Solitario for transfer of care. Patient in bed sleeping at this time. No s/s of acute distress noted. Breathing even and unlabored. Landrum attached, secured and draining by gravity. Trapeze at bedside. Abductor pillow and SCDs applied. All needs met. Call light with patient. Bed alarm on.
--- NOTE | 2018-08-17 06:00 | NUR ---
Educate patient about IS Patient was educated with the use of Incentive Spirometry. Patient verbalized understanding but refused to perform it. Explained risk and benefits.
[2018-08-17 06:34] LABS: ANION GAP 5 (5-15); CALCIUM 7.9 mg/dL (8.4-11.0); CHLORIDE 104 mmol/L (98-107); CREATININE 0.35 mg/dL (0.55-1.30); GLUCOSE 94 mg/dL (70-99); SODIUM SERUM 139 mmol/L (136-145); UREA NITROGEN, BLOOD 11 mg/dL (8-21)
[2018-08-17] MEDS: NORMAL SALINE 5 ML DISP.SYRIN IVF SCH ×3 (06:37→21:14)
[2018-08-17] MEDS: THYROID 30 MG TABLET PO SCH (06:37)
[2018-08-17 06:42] LABS: ALANINE AMINOTRANSFERASE 33 U/L (12-78); ALBUMIN 1.7 g/dL (3.4-4.8); ASPARTATE AMINOTRANSFERASE 24 U/L (10-37); TOTAL BILIRUBIN 0.4 mg/dL (0.0-1.0)
--- NOTE | 2018-08-17 06:50 | NUR ---
Final notes Patient is resting comfortably at this time with family at bedside. No s/s of any distress noted. All v/s are wnl. All needs met and anticipated by noc nurses. Call light in reach, bed alarm on and side rails up x3 for safety. Endorse care to incoming nurse.
[2018-08-17 07:19] LABS: BASOPHILS % (AUTO) 0.7 % (0.0-2.0); EOSINOPHILS % (AUTO) 3.3 % (0.0-4.0); HEMATOCRIT 28.6 % (36-48); HEMOGLOBIN 9.9 g/dL (12.0-16.0); LYMPHOCYTES % (AUTO) 26.8 % (20.5-51.5); MEAN CORPUSCULAR HEMOGLOBIN 30 pg (27-31); MEAN CORPUSCULAR HGB CONC 34 % (32-36); MEAN CORPUSCULAR VOLUME 88 fL (79.0-98.0); NEUTROPHILS % (AUTO) 57.2 % (40.0-70.0); PLATELET COUNT (AUTO) 348 K/uL (130-430); RED BLOOD CELL COUNT(AUTO) 3.27 MIL/uL (4.2-6.2); RED CELL DISTRIBUTION WIDTH 13.4 % (9.0-15.0); WHITE BLOOD COUNT (AUTO) 7.2 K/uL (4.8-10.8)
[2018-08-17 07:20] LABS: EOSINOPHILS # (AUTO) 0.2 K/uL (0.0-0.4); LYMPHOCYTES # (AUTO) 1.9 K/uL (1.0-5.5); MONOCYTES # (AUTO) 0.9 K/uL (0.0-1.0); NEUTROPHILS # (AUTO) 4.1 K/uL (1.8-7.7)
--- NOTE | 2018-08-17 08:00 | NUR ---
Opening Note Report received from [facility] shift nurse. Patient is awake and resting in bed. Abductor pillow is in place. Right hip surgical incision, is dry and intact. Right pedal pulse is palpable. Cap refill is < 3 sec. Patient is able to move all the toes on the affected extremity. IV is on the LFA 22g, saline locked. Landrum cath is in place. Will continue to monitor.
[2018-08-17 08:03] VITALS: BP_SYST 146
[2018-08-17] MEDS: hydrALAZINE HCL 25 MG TABLET PO SCH ×2 (08:34→21:00)
[2018-08-17] MEDS: HYDROcodone/ACETAMIN 5-325 MG TAB (NORCO/ VICODIN) PO PRN (08:39)
[2018-08-17] MEDS ORDERED: ENOXAPARIN SODIUM 40 MG/0.4 ML SYRINGE SUBCUT SCH (09:00)
--- NOTE | 2018-08-17 09:46 | NUR ---
Discharge Planning: DCP received order for hospital bed, DCP called [facility] (f [phone] p [phone]) to get a quote if insurance if criteria was not sufficient. Semi electric bed $115.00 per month, $95.00 for delivery and Full electric bed $150.00 per month, $95.00 for delivery. DCP informed CM
--- NOTE | 2018-08-17 10:05 | NUR ---
Rounds Deep suction done. Addendum: 08/17/18 at 1042 by Wendi Del Rio RN not intended for this patient
--- NOTE | 2018-08-17 10:05 | NUR ---
Rounds Patient got OOB with PT to the commode. Spoke with Dr. Craft who stated to keep the cabrera cath in until the patient is more mobile.
--- NOTE | 2018-08-17 10:41 | NUR ---
Endorsed care to Patricia CHOE.
--- NOTE | 2018-08-17 10:42 | NUR ---
RESUME CARE Received report from Wendi. Patient resting in the bed. No acute distress. Denied of pain at this time. Skin warm and dry to touch. SL intact to LFA, no redness, no swelling, patent. F/C intact, drain gravity with yellow urine. Abductor pillow in placed. Safety measure maintained. Bed locked in low position, side rails up, bed alarm on. Call light within reached. Continue to monitor.
--- NOTE | 2018-08-17 11:28 | NUR ---
Discharge Planning: DCP faxed pt referral to [facility] (f [phone] p [phone]) DCP spoke to Keron nadia palafox. Katrin zelaya CM and she will review packet. Addendum: 08/17/18 at 1217 by Lena Blackmon DP DCP faxed pt referral to [facility] (f [phone] p [phone]) Stewart Bernal ([phone]) Addendum: 08/17/18 at 1230 by Lena Blackmon DP [facility] (f [phone] p [phone]) DCP mel Couch gave different fax #[phone], RAMIRO refaxed pt referral Addendum: 08/17/18 at 1350 by Lena Blackmon DP DCP followed up with Katrin at [facility] (f [phone] p [phone]) packet will be reviewed by doctor tomorrow RAMIRO to follow up. Addendum: 08/17/18 at 1453 by Lena Blackmon DP DCJuan spoke to [facility] (f [phone] p [phone]) Stewart Bernal ([phone]) she is coming to evaluate pt today.
--- NOTE | 2018-08-17 11:32 | NUR ---
Dietitian Recommendations *Recommend continuing regular diet per MD orders. Please see Nutritional Assessment for details. BLADIMIR, JUANY
--- NOTE | 2018-08-17 11:42 | NUR ---
Paged Dr. Craft dialed [phone] spoke to mark
--- NOTE | 2018-08-17 12:01 | NUR ---
AKOSUA RED CALLED BACK Informed to Dr. Craft patient's UA positive, asked if he wants to urine C&S or start antibiotic. Dr. Craft with order of urine C&S and stated "no antibiotic and wait for C&S result.
[2018-08-17 12:37] VITALS: BP_SYST 137
--- NOTE | 2018-08-17 12:45 | NUR ---
URINE SPECIMEN SENT TO LAB.
--- NOTE | 2018-08-17 13:20 | NUR ---
FAMILY AT BEDSIDE
--- NOTE | 2018-08-17 14:14 | NUR ---
DC PLANNING Spoke w pt & dtr Emilee @ bedside per dtr request. Discussed dc planning, would prefer Acute Rehab, SNF if not accepted @ acute rehab. [facility]ference: [facility], [facility]2 [facility](in [place]), #3 [facility], #4 [facility]. Updated mikaela Paredes nurse discharge planner.
[2018-08-17 16:15] VITALS: BP_SYST 153
--- NOTE | 2018-08-17 16:20 | NUR ---
UPDATED CONDITION WITH FAMILY Family at bedside, updated the condition of the patient. Patient with UA positive result and MD ordered culture and sensitive, no antibiotic ordered at this time. Per MD wait the result come out. Family verbally understanding.
--- NOTE | 2018-08-17 18:46 | NUR ---
CLOSING NOTE Patient resting in the bed. No acute distress. Denied of pain at this time. Skin warm and dry to touch. SL intact to LFA, no redness, no swelling, patent. F/C intact, drain gravity with yellow urine. Abductor pillow in placed. Able to move all toes without difficulty. All needs met. Safety measure maintained. Bed locked in low position, side rails up, bed alarm on. Call light within reached. Will endorse to night nurse.
--- NOTE | 2018-08-17 20:05 | NUR ---
Opening notes Pt AAOx3. No s/s distress noted. Pt c/o pain R. hip, will medicate as needed. R. hip dressing C/D/I. Abductor pillow in place and secured. Pt repositioned. HOB slightly elevated. Landrum cath to gravity in place noted with yellow urine. Call light/items within reach. Bed low locked, alarm on. To monitor.
[2018-08-17 20:15] VITALS: BP_SYST 174
[2018-08-17] MEDS: HYDROcodone/ACETAMIN 10-325 MG TAB PO PRN (20:49)
--- NOTE | 2018-08-17 20:49 | NUR ---
Pain mgmt Pt c/o pain 01/16, medicated with [place] 10/325mg 1 tab PO as needed. Encouraged pt to use overhead trapeze to adjust herself in bed, pt verb understanding. Call light/items within reach. Safety measures in place. To monitor.
[2018-08-17] MEDS: ENOXAPARIN SODIUM 40 MG/0.4 ML SYRINGE SUBCUT SCH (21:13)
--- NOTE | 2018-08-17 22:30 | NUR ---
Hygiene/Pericare Pt had a large amount of soft bowel movement using bedpan. Pericare/skin care provided. Pt states she feels a little better. Repositioned. Call light within reach.
--- NOTE | 2018-08-17 23:05 | NUR ---
IV Restart IV leaking. Restarted new IV on Left forearm 22G. Good blood return. Pt tolerated well, secured with paper tape.
[2018-08-18 01:02] VITALS: BP_SYST 159
--- NOTE | 2018-08-18 02:00 | NUR ---
Rounds Pt asleep, easily arousable. No s/s distress noted. Landrum cath draining to gravity. Call light within reach. Safety measures in place. To monitor.
--- NOTE | 2018-08-18 05:40 | NUR ---
Rounds Pt asleep. Respirations even, unlabored. Abductor pillow in place. Landrum cath to gravity intact. Kalyan heels floated on pillow. Call light/items within reach. dental laboratory technology teacher at bedside. Call light/items within reach. To monitor.
[2018-08-18] MEDS: THYROID 30 MG TABLET PO SCH (06:47)
[2018-08-18] MEDS: NORMAL SALINE 5 ML DISP.SYRIN IVF SCH ×3 (06:47→22:00)
[2018-08-18 06:55] LABS: ANION GAP 5 (5-15); CALCIUM 8.2 mg/dL (8.4-11.0); CHLORIDE 103 mmol/L (98-107); CREATININE 0.33 mg/dL (0.55-1.30); GLUCOSE 103 mg/dL (70-99); POTASSIUM 3.7 mmol/L (3.5-5.1); SODIUM SERUM 136 mmol/L (136-145); UREA NITROGEN, BLOOD 10 mg/dL (8-21)
--- NOTE | 2018-08-18 06:55 | NUR ---
Closing notes Pt asleep, easily arousable. No s/s distress or discomfort noted. IV L. hand clear, patent. Abductor pillow in place, ene heels floated on pillow. Repositioned. All needs met throughout the night. CAll light/items iwthin reach. Safety measures in place. To endorse to dayshift RN.
[2018-08-18 07:08] LABS: HEMATOCRIT 30.7 % (36-48); HEMOGLOBIN 10.6 g/dL (12.0-16.0); MEAN CORPUSCULAR VOLUME 88 fL (79.0-98.0); RED BLOOD CELL COUNT(AUTO) 3.48 MIL/uL (4.2-6.2)
[2018-08-18 07:09] LABS: MEAN CORPUSCULAR HEMOGLOBIN 30 pg (27-31); MEAN CORPUSCULAR HGB CONC 34 % (32-36); RED CELL DISTRIBUTION WIDTH 13.6 % (9.0-15.0)
[2018-08-18 07:10] LABS: BASOPHILS % (AUTO) 0.3 % (0.0-2.0); EOSINOPHILS % (AUTO) 1.8 % (0.0-4.0); LYMPHOCYTES # (AUTO) 1.5 K/uL (1.0-5.5); LYMPHOCYTES % (AUTO) 16.2 % (20.5-51.5); MONOCYTES # (AUTO) 0.9 K/uL (0.0-1.0); MONOCYTES % (AUTO) 10.5 % (1.7-9.3); NEUTROPHILS # (AUTO) 6.4 K/uL (1.8-7.7); NEUTROPHILS % (AUTO) 71.2 % (40.0-70.0)
[2018-08-18 07:11] LABS: EOSINOPHILS # (AUTO) 0.2 K/uL (0.0-0.4)
[2018-08-18 07:17] LABS: PLATELET COUNT (AUTO) 408 K/uL (130-430)
--- NOTE | 2018-08-18 07:40 | NUR ---
OPENING NOTE Patient resting in the bed. No acute distress. AAO X4. Skin warm and dry to touch. SL intact to LFA, no redness, no swelling, patent. F/C intact, drain gravity with yellow urine. Abductor pillow in placed. Able to move all toes without difficulty. Discuss the safety issue, use call light when need help, and plan of care, verbally understanding. Safety measure maintained. Bed locked in low position, side rails up, bed alarm on. Call light within reached. Will continue to monitor.
--- NOTE | 2018-08-18 07:42 | NUR ---
OPENING NOTE Patient resting in the bed. No acute distress. Skin warm and dry to touch. SL intact to LFA, no redness, no swelling, patent. F/C intact, drain gravity with yellow urine, no hematuria noted. Discussed the safety issue, use call light when needs help, and plan of care, verbally understanding. Abductor pillow applied between legs. Safety measure maintained. Call light within reached. Bed in low position, side rails up, bed alarm on. Will continue to monitor.
[2018-08-18 07:55] VITALS: BP_SYST 135
[2018-08-18] MEDS: HYDROcodone/ACETAMIN 10-325 MG TAB PO PRN ×3 (08:36→20:08)
--- NOTE | 2018-08-18 08:36 | NUR ---
NORCO GIVEN Patient c/o right hip pain 12/16, [place] 10/325mg 1 tab PO given as ordered. No acute distress. Safety measure maintained. Call light within reached. Continue to monitor.
[2018-08-18] MEDS: hydrALAZINE HCL 25 MG TABLET PO SCH ×2 (08:37→20:16)
--- NOTE | 2018-08-18 09:15 | NUR ---
INCENTIVE SPIROMETRY Instructed and encourage patient to use incentive spirometry as tolerated, verbally understanding. Patient able to demonstrate back with 900ml.
--- NOTE | 2018-08-18 09:35 | NUR ---
2 PT ARE WORKING WITH PATIENT.
--- NOTE | 2018-08-18 10:30 | NUR ---
PATIENT IS SITTING IN RECLINER CHAIR WITH SMILE AND STATED THAT IS NO PAIN AT THIS TIME.
--- NOTE | 2018-08-18 11:20 | NUR ---
PT HELPED PATIENT BACK TO BED No acute distress. Denied of pain. Abductor pillow applied between legs. F/C intact, drain gravity. Safety measure maintained. Call light within reached. Continue to monitor.
--- NOTE | 2018-08-18 12:05 | NUR ---
SEEN AND EXAMINED BY AKOSUA RED.
[2018-08-18 12:29] VITALS: BP_SYST 149
--- NOTE | 2018-08-18 12:30 | NUR ---
CALL LIGHT ANSWERED: CALL LIGHT IS ON WALK INTO THE ROOM FOUND THE PATIENT ON BED WITH RIGHT KNEE BENDING AND ABDUCTION PILLOW WAS LOOSE FROM THE LEGS. ASK THE PATIENT WHAT SHE NEED, AND SHE SAID SHE WANTS TO KNOW HOW TO GET OUT OF BED. TOLD HER THAT SHE CAN NOT GET OUT OF BED BY HERSELF, SHE NEEDS A NURSE TO ASSIST. ASKING HER IF SHE NEED TO GET UP NOW SO I CAN HELP HER, BUT SHE SAID NO, SHE JUST WANT TO KNOW TO GET UP OUT OF BED. I TOLD HER THAT I WILL NOT TELL HER BECAUSE IF SHE CAN NOT REMEMBER AND TRY TO DO BY HERSELF SHE WILL HURT HERSELF. FINALLY I JUST GET A INSULATION ENGINEMAN HELP TO PULL HER UP AND REPOSITION. SET BED ALARM ON AND REMIND HER DO NOT GET UP BY HERSELF,TO CALL IF SHE NEED HELP. CALL LIGHT PLACE CLOSE FOR HER REACH.
--- NOTE | 2018-08-18 13:25 | NUR ---
DC Planning:F/U [facility]: per Sarah, the pt. is accepted, but pending today review of PT and MAR. Once she completes reviewing she will call back to give bed assignment by 3 pm. SABI Brewer to fax the document to Sarah farfan.
--- NOTE | 2018-08-18 13:37 | NUR ---
Discharge Planning LABOR RELATIONS CONSULTANT assisting Anastasia WARD. Requested update (24 hour report and PT) be faxed to [facility] Rehab Attn Dolores. LABOR RELATIONS CONSULTANT was unable to fax to the prior number listed. Called Dolores and best fax number is [phone]. Faxed information
--- NOTE | 2018-08-18 14:07 | NUR ---
NORCO GIVEN Patient c/o right hip 01/16, [place] 10/325mg 1 tab PO given as ordered. No acute distress. F/C intact, drain gravity. Safety measure maintained. Call light within reached. Bed locked in low position, side rails up. Continue to monitor.
--- NOTE | 2018-08-18 14:47 | NUR ---
CALLED MARIPOSA HERNANDEZ Informed to Dr. Dela Cruz, patient c/o right hip pain and stated that the pain like her hip dislocated again. Dr. Dela Cruz with order x-ray of pelvis. Order noted and carry out.
[2018-08-18] MEDS: MORPHINE 4 MG/ML INJ. SYRINGE IVP PRN (15:09)
--- NOTE | 2018-08-18 15:28 | NUR ---
DC Planning: Bed assignment at [facility], Rehab/Transitional care unit room # 311A, bed is available now. RN to report # [phone], fax# [phone], accepting by dr. Zen Dumont. >> ED notified pt's dtr/Emilee # [phone]. She agreed with the transfer. Emilee was reassured that before the transfer the pt has to be cleared by the surgeon and PCP. This due to her concerns that the pt. 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 >> Dr. Craft made aware that the pt is accepted at [facility] and to call nursing to give his final dc order. >> DAIJA LORENZO made aware of the above concern , and to transfer pt when has final d/c order from dr. Craft. >> Ambulance set up on " will call " with Abraham at [facility] transfer # [phone]. DC package delivered to [facility], DAIJA Lorenzo made aware Addendum: 08/18/18 at 1629 by Anastasia Boyce RN >> Per Patricia, the pt. dislocated her hip again and to cancel the transfer today. ED cancelled [facility] transfer with Neha. Sarah, Liaison at [facility] made aware
[2018-08-18 16:29] VITALS: BP_SYST 150
--- NOTE | 2018-08-18 16:31 | NUR ---
1500: LATE ENTRY DUE TO PATIENT CARE. here to see patient. Radiology at present taking xray of the pelvis. Son at the bedside. patient is hanging on tho the trapeze and screaming in pain. Per patient she was trying to move legs so she can sit on the edge of the bed and during the process , patient felt sharp pain " like the last time". Pain medication was given an hour ago with no result, Son and patient ageed to take the morpine 2mg ivp.
--- NOTE | 2018-08-18 16:35 | NUR ---
1600: late entry due to pt care Patient seemed more relax at this times with eyes closed and even breathing. " I still have pain ". Abductor pillow in place.
--- NOTE | 2018-08-18 16:37 | NUR ---
Pelvic XRay relayed result to dr Dela Cruz. stated he will see patient tonight and he will put orders, and keep patient comfortable
[2018-08-18] MEDS: HYDROcodone/ACETAMIN 5-325 MG TAB (NORCO/ VICODIN) PO PRN (16:45)
--- NOTE | 2018-08-18 18:45 | NUR ---
CLOSING NOTE Patient resting in the bed. No acute distress. Stated that the pain still there but tolerable. Skin warm and dry to touch. SL intact to LFA, no redness, no swelling, patent. F/C intact, drain gravity with yellow urine, no hematuria noted. All needs met. Abductor pillow applied between legs. Safety measure maintained. Call light within reached. Bed in low position, side rails up, bed alarm on. Will endorse to night nurse.
--- NOTE | 2018-08-18 19:15 | NUR ---
OPENING NOTE Received report from Patricia. Patient resting in the bed awake, alert, oriented x3. Breathing unlabored and even on room air. No signs of distress, no needs at this time. Fall and safety precautions in place. Bed in lowest position, brake on, alarm on, call light within reach. Landrum catheter draining via gravity as ordered. Abductor pillow applied between legs. Son at the bedside. Will continue to monitor.
--- NOTE | 2018-08-18 20:15 | NUR ---
Med pass. Patient refused scheduled apresoline dose, despite education. Patient c/o pain. Administered PRN norco 10 PO as ordered.
[2018-08-18] MEDS: ENOXAPARIN SODIUM 40 MG/0.4 ML SYRINGE SUBCUT SCH (20:17)
[2018-08-18 20:40] VITALS: BP_SYST 121
--- NOTE | 2018-08-18 22:18 | NUR ---
INCENTIVE SPIROMETRY TEACHING Educated patient on I.S. usage and need. Patient verbalized understanding and return demonstration. Patient reached 1000.
--- NOTE | 2018-08-18 22:21 | NUR ---
Patient resting in the bed awake, alert, oriented x3. Breathing unlabored and even on room air. No signs of distress, no needs at this time. Fall and safety precautions in place. Bed in lowest position, brake on, alarm on, call light within reach. Landrum catheter draining via gravity as ordered. Abductor pillow applied between legs. Son at the bedside. Will continue to monitor.
--- NOTE | 2018-08-18 23:00 | NUR ---
Abductor pillow in place between legs as ordered.
[2018-08-19] VITALS (7 sets, daily range): BP systolic 121–162
--- NOTE | 2018-08-19 | NUR ---
Patient now NPO per order.
--- NOTE | 2018-08-19 02:00 | NUR ---
Patient resting in the bed with eyes closed. Breathing unlabored and even on room air. No signs of distress, no needs at this time. Fall and safety precautions in place. Bed in lowest position, brake on, alarm on, call light within reach. Landrum catheter draining via gravity as ordered. Abductor pillow applied between legs. Son at the bedside. Will continue to monitor.
[2018-08-19] MEDS: THYROID 30 MG TABLET PO SCH (06:15)
[2018-08-19] MEDS: NORMAL SALINE 5 ML DISP.SYRIN IVF SCH ×3 (06:15→22:00)
--- NOTE | 2018-08-19 06:15 | NUR ---
Held med pass due to PO meds and patient being NPO. Held synthroid.
[2018-08-19 06:37] LABS: ANION GAP 7 (5-15); CALCIUM 8.4 mg/dL (8.4-11.0); CHLORIDE 103 mmol/L (98-107); CREATININE 0.26 mg/dL (0.55-1.30); GLUCOSE 103 mg/dL (70-99); POTASSIUM 3.8 mmol/L (3.5-5.1); SODIUM SERUM 137 mmol/L (136-145); UREA NITROGEN, BLOOD 10 mg/dL (8-21)
[2018-08-19 07:44] LABS: HEMATOCRIT 30.7 % (36-48); HEMOGLOBIN 10.3 g/dL (12.0-16.0); MEAN CORPUSCULAR HEMOGLOBIN 30 pg (27-31); MEAN CORPUSCULAR HGB CONC 34 % (32-36); MEAN CORPUSCULAR VOLUME 88 fL (79.0-98.0); RED BLOOD CELL COUNT(AUTO) 3.48 MIL/uL (4.2-6.2); WHITE BLOOD COUNT (AUTO) 9.5 K/uL (4.8-10.8)
[2018-08-19 07:45] LABS: BASOPHILS # (AUTO) 0.1 K/uL (0.0-0.2); BASOPHILS % (AUTO) 0.7 % (0.0-2.0); EOSINOPHILS # (AUTO) 0.2 K/uL (0.0-0.4); EOSINOPHILS % (AUTO) 1.9 % (0.0-4.0); LYMPHOCYTES # (AUTO) 1.5 K/uL (1.0-5.5); MONOCYTES % (AUTO) 10.6 % (1.7-9.3); NEUTROPHILS # (AUTO) 6.8 K/uL (1.8-7.7); NEUTROPHILS % (AUTO) 70.8 % (40.0-70.0); PLATELET COUNT (AUTO) 474 K/uL (130-430); RED CELL DISTRIBUTION WIDTH 13.6 % (9.0-15.0)
--- NOTE | 2018-08-19 07:55 | NUR ---
AM note patient resting in bed, eyes closed, breathing is even and unlabored, no signs of distress, continuing to monitor, bed in lowest position, two side rails up, call light within reach, fall and aspiration precautions in place.
--- NOTE | 2018-08-19 08:42 | NUR ---
Called OR spoke with Kierra, patient is not on the OR schedule today, asked Kierra to have Dr. Dela Cruz come to see the patient and family if he does come in today, following up as needed.
[2018-08-19] MEDS: HYDROcodone/ACETAMIN 10-325 MG TAB PO PRN ×2 (08:58→16:34)
[2018-08-19] MEDS: hydrALAZINE HCL 25 MG TABLET PO SCH ×2 (09:00→21:00)
--- NOTE | 2018-08-19 09:01 | NUR ---
Medication patient resting in bed, awake, states severe pain to right hip, educated on pain management and pain medication uses and side effects, she verbalized understanding and tolerated well, provided medication with small amount of water at this time, educated patient on plan of care and call light system and to call for any assistance, she verbalized understanding, IV line is patent and infusing well, Landrum Catheter in place draining to gravity, bed in lowest position, three side rails up, bed alarm on, call light within reach, fall and aspiration precautions in place. Addendum: 08/19/18 at 0903 by Evan Roberts RN Patient refused blood pressure medication, states she does not take any blood pressure medications, educated on benefits of medication, patient still refuses.
--- NOTE | 2018-08-19 10:26 | NUR ---
PAGED PAGED MARIPOSA ARGUELLO AT [phone] SPOKE WITH HIS SALES PORTER.
--- NOTE | 2018-08-19 10:29 | NUR ---
Spoke with Dr. Dela Cruz orders received for consent to read and Dr. Dela Cruz will come to speak to the patient around lunchtime, will follow up as needed.
--- NOTE | 2018-08-19 12:25 | NUR ---
RN rounds patient resting in bed, eyes closed, breathing is even and unlabored, no signs of distress, waiting on Dr. Dela Cruz to come speak with the patient, continuing to monitor, bed in lowest position, three side rails up, bed alarm on, call light within reach, fall and aspiration precautions in place.
[2018-08-19] MEDS: MORPHINE 4 MG/ML INJ. SYRINGE IVP PRN ×2 (13:18→21:19)
--- NOTE | 2018-08-19 14:41 | NUR ---
Called OR spoke with Kierra, apparently Dr. Dela Cruz has the patient scheduled for surgery later today, but Dr. Dela Cruz has not been in yet, informed Kierra to let Dr. Dela Cruz know to come by to speak with patient and call the family.
--- NOTE | 2018-08-19 14:56 | NUR ---
Spoke with family patient's son at bedside, requesting for water or IV fluids for patient, updates given regarding procedure this evening, will follow up with MD.
--- NOTE | 2018-08-19 15:01 | NUR ---
Zabrina Craft, A for IV fluid orders, will follow up as needed. Addendum: 08/19/18 at 1508 by Evan Roberts RN Call back and orders received.
--- NOTE | 2018-08-19 15:34 | NUR ---
Spoke with patient's daughter over the phone, regarding plan of care, informed her of new IVF orders, still no word from Dr. Dela Cruz.
[2018-08-19] MEDS: D5/0.45 NS 1,000 ML IV SCH (15:43)
--- NOTE | 2018-08-19 15:51 | NUR ---
RN rounds/IVF patient resting in bed, complaining of pain to right hip, wants to wait for pain medication depending on when Dr. Dela Cruz is coming, educated on IVF and components, patient verbalized understanding, patient's son at bedside, no other needs at this time, bed in lowest position, three side rails up, bed alarm on, call light within reach, fall and aspiration precautions in place, neurovascular check complete.
--- NOTE | 2018-08-19 16:04 | NUR ---
Spoke with OR nurses Dr. Dela Cruz surgery will most likely not be until about 6pm tonight, will inform the patient and family.
--- NOTE | 2018-08-19 16:20 | NUR ---
DC Planning: updated Sarah, nurse liaison at [facility] that the md is planning to do the second ORIF tonight. Sarah will fu tomorrow for the transfer date.
--- NOTE | 2018-08-19 16:35 | NUR ---
Pain medication patient resting in bed, complaining of severe pain to right hip, educated on pain management and pain medication uses and potential side effects, she verbalized understanding, administered pain medication with small amount of water, she tolerated well, Charge Nurse Lissy at bedside speaking with patient and her son, patient has no other needs at this time, bed in lowest position, three side rails up, call light within reach, fall and aspiration precautions in place, IV line is patent and infusing well.
--- NOTE | 2018-08-19 18:55 | NUR ---
Closing note/called OR patient resting in bed, eyes closed, breathing is even and unlabored, will endorse report to NOC shift nurse, patient in stable condition. Called OR nurse, she said that the case is postponed until about 9pm tonight.
--- NOTE | 2018-08-19 19:23 | NUR ---
OPENING NOTE Received report from Evan. Patient resting in bed awake, alert, oriented x4. Breathing unlabored and even on room air. No signs of distress, no needs at this time. Son at the bedside. Fall and safety precautions in place. Bed in lowest position, brake on, alarm on, call light within reach. Abductor pillow secured in place. SCDs on. Patient NPO for surgery tonight. Waiting on Dr. Dela Cruz to arrive. Will continue to monitor.
--- NOTE | 2018-08-19 20:46 | NUR ---
Dr. Kurtz at the bedside discussing anesthesia for patient's surgery. Anesthesia consent signed and placed in chart.
[2018-08-19] MEDS: SULFAMETHOXAZOLE/TRIMETHOPR DS 1 TABLET PO SCH (21:00)
[2018-08-19] MEDS: ENOXAPARIN SODIUM 40 MG/0.4 ML SYRINGE SUBCUT SCH (21:00)
--- NOTE | 2018-08-19 21:24 | NUR ---
Patient c/o pain. Administered PRN morphine 2mg IVP as ordered.
--- NOTE | 2018-08-19 21:35 | NUR ---
Kortney, RN & Nishant, RN from PACU came to room to speak to son and patient. Dr. Dela Cruz is leaving [facility] in 10 mins and will arrive shortly. Patient transported to OR with son. Surgical consent will be singed by patient's son when Dr. Dela Cruz arrives in the OR. Kortney and Nishant aware that consent is not signed and they will witness the consent. Patient off the floor.
[2018-08-19] MEDS ORDERED: fentaNYL CITRATE/PF 100 MCG/2 ML AMP IVP PRN ×2 (22:30)
[2018-08-19] MEDS ORDERED: hydrALAZINE HCL 20 MG/ML VIAL ONE (22:54)
[2018-08-19] MEDS ORDERED: fentaNYL CITRATE/PF 100 MCG/2 ML AMP ONE (23:17)
--- NOTE | 2018-08-19 23:24 | NUR ---
Patient's daughter, Emilee called for update.
[2018-08-19] MEDS ORDERED: LABETALOL 100 MG/ 20ML VIAL ONE (23:33)
[2018-08-19] MEDS ORDERED: KETOROLAC TROMETHAMINE 30 MG VIAL ONE (23:46)
[2018-08-19] MEDS ORDERED: ONDANSETRON HCL 4 MG/2 ML VIAL ONE (23:47)
[2018-08-20] MEDS ORDERED: KETOROLAC TROMETHAMINE 30 MG VIAL IVP ONE
[2018-08-20] MEDS ORDERED: hydrALAZINE HCL 20 MG/ML VIAL IVP ONE
[2018-08-20] MEDS ORDERED: LABETALOL 100 MG/ 20ML VIAL IVP ONE
[2018-08-20] MEDS ORDERED: ONDANSETRON HCL 4 MG/2 ML VIAL IVP SCH
--- NOTE | 2018-08-20 | NUR ---
Patient back to room from the PACU. Patient in stable condition. No complaints of pain. Post-op vital signs started. Abductor pillow secured in place. SCDs on bilaterally. IVF infusing as ordered.
[2018-08-20] MEDS: D5/0.45 NS 1,000 ML IV SCH ×3 (01:15→18:11)
--- NOTE | 2018-08-20 02:54 | NUR ---
Patient resting in bed with eyes closed. Breathing unlabored and even on room air. No signs of distress, no needs at this time. Fall and safety precautions in place. Bed in lowest position, brake on, alarm on, call light within reach. Abductor pillow secured in place. SCDs on. Landrum catheter draining via gravity. Will continue to monitor.
[2018-08-20] MEDS: THYROID 30 MG TABLET PO SCH (06:15)
[2018-08-20] MEDS: DOCUSATE SODIUM 100 MG CAPSULE PO PRN (06:15)
--- NOTE | 2018-08-20 06:16 | NUR ---
Med pass. Administered PRN colace PO.
--- NOTE | 2018-08-20 07:02 | NUR ---
CLOSING NOTE Patient resting in bed with eyes closed. Breathing unlabored and even on room air. No signs of distress, no needs at this time. Fall and safety precautions in place. Bed in lowest position, brake on, alarm on, call light within reach. Abductor pillow secured in place. SCDs on. Landrum catheter draining via gravity. Will endorse cares to day shift nurse.
[2018-08-20 07:06] LABS: ANION GAP 2 (5-15); C-REACTIVE PROTEIN QUANT 5.2 mg/dL (0-0.5); CALCIUM 8.2 mg/dL (8.4-11.0); CHLORIDE 103 mmol/L (98-107); CREATININE 0.26 mg/dL (0.55-1.30); GLUCOSE 116 mg/dL (70-99); POTASSIUM 3.4 mmol/L (3.5-5.1); SODIUM SERUM 134 mmol/L (136-145); UREA NITROGEN, BLOOD 9 mg/dL (8-21)
[2018-08-20 07:24] LABS: HEMATOCRIT 28.6 % (36-48); HEMOGLOBIN 9.8 g/dL (12.0-16.0); MEAN CORPUSCULAR HEMOGLOBIN 30 pg (27-31); MEAN CORPUSCULAR HGB CONC 34 % (32-36); MEAN CORPUSCULAR VOLUME 88 fL (79.0-98.0); PLATELET COUNT (AUTO) 443 K/uL (130-430); RED BLOOD CELL COUNT(AUTO) 3.25 MIL/uL (4.2-6.2); RED CELL DISTRIBUTION WIDTH 13.9 % (9.0-15.0); WHITE BLOOD COUNT (AUTO) 10.1 K/uL (4.8-10.8)
[2018-08-20 07:25] LABS: EOSINOPHILS % (AUTO) 1.6 % (0.0-4.0); LYMPHOCYTES % (AUTO) 14.7 % (20.5-51.5); MONOCYTES % (AUTO) 8.2 % (1.7-9.3); NEUTROPHILS % (AUTO) 75.2 % (40.0-70.0)
[2018-08-20 07:26] LABS: BASOPHILS % (AUTO) 0.3 % (0.0-2.0); EOSINOPHILS # (AUTO) 0.2 K/uL (0.0-0.4); LYMPHOCYTES # (AUTO) 1.5 K/uL (1.0-5.5); MONOCYTES # (AUTO) 0.8 K/uL (0.0-1.0); NEUTROPHILS # (AUTO) 7.6 K/uL (1.8-7.7)
[2018-08-20 07:34] VITALS: BP_SYST 128
[2018-08-20] MEDS: hydrALAZINE HCL 25 MG TABLET PO SCH ×3 (07:46→21:00)
--- NOTE | 2018-08-20 07:48 | NUR ---
documented pt refused bp meds ( per pt's daughter and son)
--- NOTE | 2018-08-20 08:00 | NUR ---
Opening notes, received pt in bed, pt is aaox3, denies pain, no sob, no distress. r. hip incisional dressing intact, no drainage, no bleeding. neuro check done. pt has intact sensation and able to move foot. abductor pillow in place. safety call light in reach. bed in low position. pt encouraged to call for assist and pain medications. will cont to monitor.
[2018-08-20 08:12] LABS: ERYTHROCYTE SEDIMENTATION RATE 37 MM/HR (0-20)
[2018-08-20] MEDS: SULFAMETHOXAZOLE/TRIMETHOPR DS 1 TABLET PO SCH ×2 (08:20→20:56)
[2018-08-20] MEDS ORDERED: POTASSIUM CHLORIDE 20 MEQ TAB.PRT.SR PO ONE (09:45)
--- NOTE | 2018-08-20 10:15 | NUR ---
pt in bed, seen pt doing her her breathing exercises by using the I.S. , no c/o pain. will cont to monitor.
--- NOTE | 2018-08-20 10:55 | NUR ---
Discharge Planning: DCP sent pt order to [facility] p [phone]) for custom hip brace, per Mai oliveira will be out this afternoon to do measurements DCP made patient aware. Addendum: 08/20/18 at 1119 by Lena Blackmon DP DCP spoke to daughter to make her aware [facility] [employer] [facility] p [phone]) for custom hip brace would be out this afternoon to do measurements Addendum: 08/20/18 at 1551 by Lena Blackmon DP CORRECTION----Patient will be fitted for a Right leg.
[2018-08-20 12:19] VITALS: BP_SYST 133
--- NOTE | 2018-08-20 12:41 | NUR ---
Physical Therapy treatment will be resumed after the patient has been fitted with the right hip orthotic.
--- NOTE | 2018-08-20 14:30 | NUR ---
PT IN BED, NO C/O PAIN, NO SOB, ABDUCTOR PILLOW IN PLACE. PT MADE AWARE THAT BROKE MAN WILL COME TO MAKE MEASUREMENT OF THE HIP BRACE. PT VERBALIZED UNDERSTANDING.
--- NOTE | 2018-08-20 15:24 | NUR ---
PT'S SON AT BEDSIDE, UPDATED WITH THE MEASUREMENTS SCHEDULE TODAY BUT NO TIME YET.
[2018-08-20 16:38] VITALS: BP_SYST 106; BP_SYST 158
--- NOTE | 2018-08-20 17:40 | NUR ---
[facility] here and brought custom hip brace, verified with dr alan that pt needs shortleg boot instead. [facility] will be back in am. pt is aware.
--- NOTE | 2018-08-20 19:37 | NUR ---
CLOSING NOTES, PT HAS BEEN STABLE, NO C/O PAIN. NO SOB, ABDUCTION PILLOW IN PLACE. PT'S SON AWARE THAT BOOT WILL BE DELIVERED TOMORROW. ENDORSED TO NIGHT RN.
[2018-08-20] MEDS: ENOXAPARIN SODIUM 40 MG/0.4 ML SYRINGE SUBCUT SCH (20:57)
[2018-08-20 21:00] VITALS: BP_SYST 126
--- NOTE | 2018-08-20 21:00 | NUR ---
Opening notes Pt AAOx3, VSS, afebrile. Pt denies any pain at this time. Abductor pillow in place. R. hip dressing C/D/I. Neurovasc check intact. IVF infusing as ordered R. FA no s/s infiltration. Call light/items within reach. Kalyan SCDs on. To monitor.
[2018-08-20] MEDS ORDERED: PROPOFOL 200MG/ 20ML VIAL (DIPRIVAN) IV ONE (22:00)
[2018-08-20] MEDS ORDERED: LR 1,000 ML IV.SOLN IV ONE (22:00)
[2018-08-20] MEDS ORDERED: SEVOFLURANE 15 MIN GAS INH ONE (22:00)
--- NOTE | 2018-08-21 00:15 | NUR ---
Rounds Pt asleep, easily arousable. No c/o pain or discomfort at this time. Abductor pillow between legs at all times. IVF infusing as ordered R. FA 20 no s/s infiltration. Call light within reach. To monitor.
[2018-08-21 00:22] VITALS: BP_SYST 142
--- NOTE | 2018-08-21 02:18 | NUR ---
Rounds Pt asleep. No s/s distress or discomfort noted. Abductor pillow in place. IVF infusing as ordered. Call light/items within reach. To monitor.
[2018-08-21] MEDS: D5/0.45 NS 1,000 ML IV SCH ×2 (04:34→17:15)
[2018-08-21] MEDS: NORMAL SALINE 5 ML DISP.SYRIN IVF SCH ×2 (04:35→13:53)
--- NOTE | 2018-08-21 04:40 | NUR ---
Rounds Pt awake, no distress noted. Pt c/o its too cold, warm blanket provided per pt request and made comfortable. New IVF bag hung as ordered. Landrum cath to gravity noted with yellow urine. Abductor pillow in place. Call light iwthin reach. To monitor.
--- NOTE | 2018-08-21 06:00 | NUR ---
Closing notes Pt asleep, no s/s distress or discomfort noted. Security adjusted room temp and is warmer now. IVF infusing as ordered R. FA20G no s/s infiltration noted. Abductor between legs at all time. Hip precaution maintained. Neurovasc checks done. Call light within reach. Safety measures in place. Awaiting delivery of short leg boot from [facility]. To endorse to robin CHOE.
[2018-08-21] MEDS: THYROID 30 MG TABLET PO SCH (06:44)
[2018-08-21] MEDS: DOCUSATE SODIUM 100 MG CAPSULE PO PRN (06:50)
[2018-08-21 07:08] LABS: ALANINE AMINOTRANSFERASE 30 U/L (12-78); ALBUMIN 2.1 g/dL (3.4-4.8); ANION GAP 6 (5-15); ASPARTATE AMINOTRANSFERASE 23 U/L (10-37); C-REACTIVE PROTEIN QUANT 5.2 mg/dL (0-0.5); CALCIUM 8.1 mg/dL (8.4-11.0); CHLORIDE 102 mmol/L (98-107); CREATININE 0.35 mg/dL (0.55-1.30); GLUCOSE 115 mg/dL (70-99); HEMATOCRIT 29.4 % (36-48); MEAN CORPUSCULAR HEMOGLOBIN 30 pg (27-31); MEAN CORPUSCULAR HGB CONC 34 % (32-36); MEAN CORPUSCULAR VOLUME 89 fL (79.0-98.0); POTASSIUM 3.5 mmol/L (3.5-5.1); RED BLOOD CELL COUNT(AUTO) 3.31 MIL/uL (4.2-6.2); RED CELL DISTRIBUTION WIDTH 13.8 % (9.0-15.0); SODIUM SERUM 135 mmol/L (136-145); TOTAL BILIRUBIN 0.6 mg/dL (0.0-1.0); UREA NITROGEN, BLOOD 6 mg/dL (8-21); WHITE BLOOD COUNT (AUTO) 9.7 K/uL (4.8-10.8)
[2018-08-21 07:09] LABS: LYMPHOCYTES % (AUTO) 11.9 % (20.5-51.5); NEUTROPHILS % (AUTO) 91.1 % (40.0-70.0); PLATELET COUNT (AUTO) 497 K/uL (130-430)
[2018-08-21 07:10] LABS: BASOPHILS % (AUTO) 0.3 % (0.0-2.0); EOSINOPHILS # (AUTO) 0.2 K/uL (0.0-0.4); EOSINOPHILS % (AUTO) 1.7 % (0.0-4.0); LYMPHOCYTES # (AUTO) 1.2 K/uL (1.0-5.5); MONOCYTES # (AUTO) 0.5 K/uL (0.0-1.0); NEUTROPHILS # (AUTO) 7.9 K/uL (1.8-7.7)
--- NOTE | 2018-08-21 07:15 | NUR ---
Opening Note patient is sitting up in bed, awake and alert, denies pain at this time, breathing unlabored and symmetrical, cabrera draining via gravity, she is sitting on bedpan, educated patient on use of call light for assistance, verbalized understanding, call light and bedside table left within reach, will continue to monitor patient
[2018-08-21] MEDS: hydrALAZINE HCL 25 MG TABLET PO SCH (08:27)
[2018-08-21] MEDS: SULFAMETHOXAZOLE/TRIMETHOPR DS 1 TABLET PO SCH (08:27)
[2018-08-21 08:38] VITALS: BP_SYST 154
--- NOTE | 2018-08-21 08:40 | NUR ---
Medications educated patient regarding meds, verbalized understanding, tolerated well by mouth, dressing on right hip clean dry and in tact, stated pain is at a 5/10 and tolerable at this time, does not want pain meds, educated her on pain management, verbalized understanding, no other needs at this time, educated patient on use of call light for assistance, verbalized understanding, call light and bedside table left within reach, will continue to monitor patient
[2018-08-21 08:55] LABS: ERYTHROCYTE SEDIMENTATION RATE 35 MM/HR (0-20)
--- NOTE | 2018-08-21 09:37 | NUR ---
Called [facility] spoke with Mai, stated that they delivered order for hip brace yesterday but ordered short leg boot instead, stated territory representative will be by today to bring by equipment sometime this AM, does not have time estimate
--- NOTE | 2018-08-21 09:45 | NUR ---
Paged Dr. Dela Cruz at this time to clarify orders for orthopedic devices, awaiting call back
[2018-08-21] MEDS: MORPHINE 4 MG/ML INJ. SYRINGE IVP PRN (10:20)
--- NOTE | 2018-08-21 10:33 | NUR ---
Pain meds given at this time per pain scale protocol, educated patient regarding med, verbalized understanding, IV site remains patent, breathing unlabored and symmetrical on room air, neurovascular checks within normal limits, no other needs at this time, educated patient on use of call light for assistance, verbalized understanding, call light and bedside table left within reach, will continue to monitor patient
--- NOTE | 2018-08-21 10:44 | NUR ---
Second Page to Dr. Dela Cruz/[employer] at bedside short leg boot being delivered at this time, passenger representative placing boot on patient, another page sent to Dr. Dela Cruz to clarify order for orthopedic devices, office stated will text MD regarding clarification of orders, awaiting call back
--- NOTE | 2018-08-21 10:50 | NUR ---
[facility] at bedside at this time, still awaiting call back from
--- NOTE | 2018-08-21 11:17 | NUR ---
Spoke with Dr. Dela Cruz/Called [facility] informed Dr. Dela Cruz that the boot was delivered but there is no other device to stabilize the hip, stated to have [facility] call him directly on his cellphone. Called [facility] and informed them to call Dr. Dela Cruz and gave phone number. Also left message for Dr. Dela Cruz to call [facility] to clarify PT orders since proper devices for ambulation are not available.
[2018-08-21 12:23] VITALS: BP_SYST 142
[2018-08-21] MEDS ORDERED: DOCU-144 PO (13:43)
--- NOTE | 2018-08-21 13:53 | NUR ---
Paged Dr. Dela Cruz for clearance to transfer per Dr. Craft's orders, awaiting call back
--- NOTE | 2018-08-21 14:35 | NUR ---
Discharge Planning: DCP faxed [place] at [facility] (f [phone] p [phone]) updated PT notes and 24hr. Per [place] pt assigned to bed 337B. Addendum: 08/21/18 at 1535 by Lena Blackmon DP DCP arranged for transportation with [facility] ([phone]) Will Call pending Dr. Dela Cruz DC order, patient nurse made aware. Patient going to [facility] (f [phone] p [phone]) RM 337B nurse to nurse [phone]. Packet taken to nurse station.
[2018-08-21] MEDS: HYDROcodone/ACETAMIN 10-325 MG TAB PO PRN (15:16)
--- NOTE | 2018-08-21 15:20 | NUR ---
[place] given per pain scale protocol, educated patient regarding med, verbalized understanding, tolerated well by mouth, family at bedside, educated family and patient awaiting Dr. Dela Cruz to call back, no signs of distress from patient, educated patient on use of call light for assistance, verbalized understanding, call light and bedside table left within reach, safety precautions in place, will continue to monitor
--- NOTE | 2018-08-21 15:25 | NUR ---
Spoke with Dr. Lanie LAGOS to transfer, patient to follow up with him in 2 weeks, will place order
--- NOTE | 2018-08-21 15:46 | NUR ---
Nutrition F/U Admitting Diagnosis Superior Dislocation of Right Prosthetics Reviewed Pertinent Medical/Surgical Hx Medical Record Patient Medical History Comment: PMH: displaced subcapital fracture of R hip per MD notes. Pt found w/: S/P non-cemented bipolar hemiarthroplasty, R hip, HTN, COPD, PAD, Hypothyroidism, Carotid stenosis per MD notes. Subjective Information Pt is awake and alert and stated that she is hard of hearing. Pts [id number] helped w/ interview. Iszweyaq-mo-xcg reported that pt eats healthy, organic food prepared at home and brought in to hospital by lszyfxds-tx-egr who lives nearby. She also reported that pt drinks Boost at home because Ensure is bad for you. Pt had unopened Ensure Enlive at bedside and fzxpckpu-gc-bea states that she sometimes drinks it since she has been in the hospital. Per physical examination, pt appeared w/ muscle and fat wasting. Per EMR, I/O: 1320/1600 -280ml, IV total intake 1200ml per 12 hrs. PO intake 28% x 3 meals 08/20/18. Pt is underweight and ONS is warranted to facilitate wt gain. Cnufcdog-vz-exi stated that family will bring her ONS from home. Pt was encouraged to increase PO intake. Pt reported not having a BM for past 3 days. Per RN, pt has been given Colace once yesterday and once this morning to encourage a BM. Current Diet Order/Nutrition Support Regular diet x 2 day Patient/Significant Other Able To Verbalize Education Provided Not Indicated Pertinent Medications lovenox, armour thyroid, Zofran, NaCl IV, Colace, Morphine, Reading Pertinent Labs CRE 0.35 L, ALB 2.1 L, H/H 10 L/29.4 L, Na 135 L, BUN 6 L, BG 115 H, Ca 8.1 L Height (Feet) 5 feet Height (Inches) 4.00 inches Weight (Pounds) 101 pounds (08/17/18) Weight (Calculated Kilograms) 45.487562 kilograms Patient Weight 45.813 kg Body Mass Index 17.33 kg/m2 %IBW 84 [place]/Adjusted Body Weight 120 lb, 55 kg Recent Weight Change Yes - wt gain of 4 lb since last admission per EMR Weight Status Underweight Gastrointestinal Symptoms None Food Allergies No Usual Diet At Home regular diet w/ Boost QD or every other day Skin Integrity Comment: Rhett scale: 18, per RN notes, R hip incision. Non-pitting edema noted on right hip per EMR. Current % PO Good (75-100%) Estimated Energy Expenditure (kcals/day) 9262-6512 kcal/day (30-35 kcal/kg IBW for COPD/wt gain promotion) Estimated Protein Required (g/day) 83-110 gm/day (1.5-2 gm/kg IBW for COPD/wt gain promotion) Estimated Fluid Required (l/day) 1.4 l/day (25ml/kg IBW for Geriatric maintenance) Problem/Etiology/Signs/Symptoms Underweight r/t pathophysiological and financial factors AEB pt's report of difficulty in acquiring and preparing food for self and pt's report of not being able to afford food deliveries and ONS. Expected Outcomes/Goals Monitor appetite and PO intake w/ goal of pt meeting at least 75% of estimated nutritional needs, labs trending WNL, normal GI function, skin integrity/wt maintenance. Dietitian Recommendations *Recommend continuing regular diet per MD orders. Follow Up Mod Risk: F/U in 3-5 days Signed: 08/21/18 at 1546 by Nori KRUEGER <Co-Signature Required> Co-Signed: 08/21/18 at [address]
--- NOTE | 2018-08-21 15:47 | NUR ---
Spoke with [id number] up time scheduled at 630 pm, spoke with Chiara. Addendum: 08/21/18 at 1548 by Neha Garcia RN
--- NOTE | 2018-08-21 16:00 | NUR ---
Landrum Catheter DC at this time
[2018-08-21 16:06] VITALS: BP_SYST 152
--- NOTE | 2018-08-21 16:47 | NUR ---
Dietitian Recommendations *Recommend continuing regular diet per MD orders. LP, RD Please refer to Nutrition F/U for details.
[2018-08-21] MEDS ORDERED: SULF1TAB3 PO (17:03)
[2018-08-21 17:38] VITALS: BP_SYST 152
--- NOTE | 2018-08-21 18:30 | NUR ---
PT TRANSFERRED Report given to Amanda at [facility]. Transfer packet with Transfer Orders and Medication Reconciliation form given to EMT with report. Exitcare provided. [facility] ID band removed, replaced with ID band with pt's name and . IV catheter removed, intact and dressing applied, no active bleeding. All belongings sent with patient. Patient left floor via gurney escorted by EMT in no distress.
== END 2018-08-21 18:30 | DRG 559 ==
LOC: SMU 12:45
PROVIDERS: ADMIT Preventive Medicine Preventive Medicine/Occupational Environmental Medicine; ATTEND Preventive Medicine Preventive Medicine/Occupational Environmental Medicine
PROC: 0SWBXJZ Revision of Synthetic Substitute in Left Hip Joint, External Approach (ICD-10-PCS; 2018-08-15)
PROC: 0SWBXJZ Revision of Synthetic Substitute in Left Hip Joint, External Approach (ICD-10-PCS; principal; 2018-08-19 16:00)
DX: T84.020A Dislocation of internal right hip prosthesis, initial encounter (principal); E43 Unspecified severe protein-calorie malnutrition; E87.1 Hypo-osmolality and hyponatremia; N39.0 Urinary tract infection, site not specified; Z68.1 Body mass index [BMI] 19.9 or less, adult; I10 Essential (primary) hypertension; E03.9 Hypothyroidism, unspecified; J44.9 Chronic obstructive pulmonary disease, unspecified; I73.9 Peripheral vascular disease, unspecified; I65.29 Occlusion and stenosis of unspecified carotid artery; B96.20 Unspecified Escherichia coli [E. coli] as the cause of diseases classified elsewhere; D64.9 Anemia, unspecified; E83.51 Hypocalcemia; E83.52 Hypercalcemia; E87.6 Hypokalemia; R77.1 Abnormality of globulin; Y79.2 Prosthetic and other implants, materials and accessory orthopedic devices associated with adverse incidents; D69.6 Thrombocytopenia, unspecified; Y92.89 Other specified places as the place of occurrence of the external cause
CPT/HCPCS: 36415; 71045; 72170-TC; 76000; 80048; 80053; 81000-TC; 85025; 85610-TC; 85651-TC; 86140; 87081; 87086; 87186-TC; 93005; 94010; 94760; 97110-GP; 97116-GP; 97530-GP; C9290; J0360; J1650; J1885; J2250; J2270; J2405; J2704; J3010; J3480; J3490; J7050; J7120